=== PATIENT | male | born 1950 | race Caucasian/White ===

== ENCOUNTER 2022-05-29 12:42 | Outpatient (CLI) | payer MEDICARE, OTHER, SELFPAY | END 2022-05-29 12:43 | disposition home or self-care (01) | LOC: NFLDREF 05-31 05:07 | PROVIDERS: Visit Provider Nurse Practitioner Family | DX: R30.0 Dysuria (principal); N39.0 Urinary tract infection, site not specified | CPT/HCPCS: 87086 ==

== ENCOUNTER 2022-08-21 12:46 | Outpatient (REF) | payer MEDICARE, OTHER, SELFPAY | END 2022-08-21 12:47 | disposition home or self-care (01) | LOC: LAB 12:46 | PROVIDERS: Radiology Radiation Oncology | DX: C61 Malignant neoplasm of prostate (principal) | CPT/HCPCS: 36415; 84153 ==

== ENCOUNTER 2022-11-04 14:52 | Outpatient (CLI) | payer MEDICARE, OTHER, SELFPAY | END 2022-11-04 14:53 | disposition home or self-care (01) | LOC: LKVREF 14:54 | PROVIDERS: PCP Emergency Medicine; Visit Provider Emergency Medicine | DX: Z01.818 Encounter for other preprocedural examination (principal); I10 Essential (primary) hypertension | CPT/HCPCS: 80048 ==

== ENCOUNTER 2023-12-22 13:24 | Outpatient (CLI) | payer MEDICARE, OTHER, SELFPAY ==
--- OUTSIDE RECORDS SUMMARY | 2023-12-22 13:28 | XMS_ITS | Data Portability ---
Author Organization [facility], [facility] Address [address] [place] [address] Care Team Providers Care Utility Bagger Name Role Phone [facility] Primary Care Provid er CE VALLEJO Referring Provider Assessment No assessment recorded. Plan of Treatment Reminders Order Date Submit Date Provider Last Modified By Organization Details Last Modified Time Details Appointments ESTABLISH ED 30 2024 11:00A LISSETTE ZEPEDA Not available Not available Not available Lab PSA, total, serum or plasma 2023 024 [facility], [address], [address], 07/27/2023 18:27:24 PSA, total, serum or plasma 2023 024 [facility], [address], [address], 10/19/2023 18:22:25 Referral None recorded. Procedures None recorded. Surgeries None recorded. Imaging None recorded. Medication Orders sildenafi l 100 mg tablet 2023 024 [id number], [address] [place], [place], [id number], 11/02/2023 12:19:17 Patient TargetsNo targets recorded. Patient Instructions Encounter Date Encounter Id Patient Instructions Last Modified By Organization Details Last Modified Time 07/28/2023 [id number] history of prost ate cancer for which he underwent a robotic radical prostatectomy and bilateral pelvic lymphadenectomy on 11/10/22 for [place] 4 + 3 = 7/10 (ISUP grade group 3), with [place] pattern 4 representing approximately 60% of tumor with negative margins 11/30/22 E coli UTI completed 1 week course of Cipro, dysuria resolved PSA remains undetectable RTC in another 3 months for prostate cancer surveillance continue Kegel exercises and PFPT and biofeedback will reassess ISREAL at next f/u appt. also to continue Tadalafil 5 mg po daily and use 20 mg as needed for intercourse, add EDUIN for rehabilitation of of erections when ready jakornor Not available 07/28/2023 14:11:02 11/02/2023 [id number] history of prost ate cancer for which he underwent a robotic radical prostatectomy and bilateral pelvic lymphadenectomy on 11/10/22 for [place] 4 + 3 = 7/10 (ISUP grade group 3), with [place] pattern 4 representing approximately 60% of tumor with negative margins 11/30/22 E coli UTI completed 1 week course of Cipro, dysuria resolved PSA remains undetectable RTC in another 3 months for prostate cancer surveillance continue Kegel exercises and PFPT and biofeedback will reassess ISREAL at next f/u appt. also to continue Tadalafil 5 mg po daily and use 20 mg as needed for intercourse, add EDUIN for rehabilitation of of erections when ready vamanor Not available 11/02/2023 12:18:38 11/03/2023 [id number] history of prost ate cancer for which he underwent a robotic radical prostatectomy and bilateral pelvic lymphadenectomy on 11/10/22 for [place] 4 + 3 = 7/10 (ISUP grade group 3), with [place] pattern 4 representing approximately 60% of tumor with negative margins 11/30/22 E coli UTI completed 1 week course of Cipro, dysuria resolved PSA remains undetectable RTC in 6 months for prostate cancer surveillance continue Kegel exercises and PFPT and biofeedback also to continue ED management as per LISSETTE Merino jakornor Not available 11/03/2023 17:23:26 Reason for Referral None Reported. Results Created Date Observation Date Name Description Value Unit Range Abnormal Flag Note LastModifiedBy Organization Detail LastModifiedTime 07/23/19 24 07/23/2023 PSA, TOTAL PSA, total <0.10 NG/mL <4.0 This lab resul t is being provi ded to you and your provi meka at the same time in [facility] with the u ry Cures Act. Your provi meka may not have had time to revie w and make recom menda tions based on the resul t. Pleas e allow up to one week for provi meka revie w. Not Available [facility] [address], [place], [address], 07/27/2023 18:27:24 10/19/19 24 10/19/2023 PSA, TOTAL PSA, total <0.10 NG/mL <4.0 This lab resul t is being provi ded to you and your provi meka at the same time in [facility] with the Centu ry Cures Act. Your provi meka may not have had time to revie w and make recom menda tions based on the resul t. Pleas e allow up to one week for provi meka revie w. Not Available [facility] [address], [place], [address], 10/19/2023 18:22:25 Result Notes None recorded. Problems No Known Problems Procedures Surgical History Date Name Laterality Status Provider Name and Address Organization Details Recorded Time 11/03/19 24 Past Data Reviewed completed Diallo Mckeon MD [address] [place] [address],[address], [address], [facility] 10/27/2023 13:51:27 11/02/19 24 Past Data Reviewed completed LISSETTE MERINO [address] [place] [address],[address], [address], [facility] 11/02/2023 12:00:56 10/19/19 24 Blood Draw/MARKET SURVEY REPRESENTATIVE/PSA RESULTS completed Rayne Guevara [facility] 10/19/2023 10:26:06 07/28/19 24 Past Data Reviewed completed Diallo Mckeon MD [address] [place] [address],[facility] [address], [address], [facility] 07/28/2023 08:52:09 07/23/19 24 Blood Draw/MARKET SURVEY REPRESENTATIVE/PSA RESULTS completed Hellen Pratt [facility] 07/23/2023 12:54:54 02/24/19 24 Past Data Reviewed completed Diallo Mckeon MD [address] [place] [address],[address], [place], [address], [facility] 02/22/2023 19:01:50 02/13/20 23 Blood Draw/MARKET SURVEY REPRESENTATIVE/PSA RESULTS completed Wandy Guevara [facility] 02/12/2023 13:56:59 12/01/19 23 Past Data Reviewed completed Diallo Mckeon MD [address] [place] [address],[address], [place], [address], [facility] 11/30/2022 17:46:08 12/01/19 23 Fill and Pull/Voiding Trial/TOV completed Ria Hirsch [facility] 11/30/2022 10:56:23 09/26/19 23 Past Data Reviewed completed Diallo Mckeon MD [address] [place] [address],[address], [place], [address], [facility] 09/25/2022 10:11:06 07/04/19 23 Past Data Reviewed completed Diallo Mckeon MD [address] [place] [address],[address], [place], [address], [facility] 07/03/2022 11:55:49 03/25/19 23 Past Data Reviewed completed Diallo Mckeon MD [address] [place] [address],[address], [place], [address], [facility] 03/25/2022 15:46:28 01/23/20 21 Past Data Reviewed completed EVERETT RUFF [address] [place] [address],[address], [place], [address], [facility] 01/22/2021 10:41:21 11/28/19 21 Past Data Reviewed completed Diallo Mckeon MD [address] [place] [address],[address], [place], [address], [facility] 11/27/2020 10:50:15 09/28/19 19 Diagnostic colonoscopy completed Not Available Health Note 03/23/2022 20:27:21 replacement of aortic valve completed Not Available Health Note 03/23/2022 20:27:21 Removal of prostate completed Not Available Health Note 07/27/2023 14:04:29 Prostatectomy (turp) completed Not Available Health Note 07/27/2023 14:04:29 Imaging Results None recorded. Procedure Notes None recorded. Medical Equipment None Reported. Allergies No known drug allergies Medications Name Sig Start Date Stop Date Status Note LastModified by Organization Details LastModified Time amoxicill in 500 mg capsule 07/03 completed prior to dental work HN: Patient reports taking Not Available Not Available Not Available primidone 50 mg tablet TAKE ONE-HALF TABLET BY MOUTH EVERY DAY active Not Available Not Available No t Available propranol ol ER 160 mg capsule,2 4 hr,extend ed release 60mg 1-week/d ay 02/24 completed HN: Patient reports taking HN: Patient reports no longer taking HN: Patient reports no longer taking Not Available Not Available Not Available azithromy valerie 250 mg tablet 02/24 completed HN: Patient reports no longer taking Not Available Not Available Not Available fluconazo le 150 mg tablet TAKE 1 TABLET BY MOUTH EVERY 3 DAYS FOR 2 DOSES 11/30 completed Not Available Not Available Not Available phenazopy ridine 200 mg tablet TAKE 1 TABLET BY MOUTH THREE TIMES DAILY NEEDED 02/24 completed HN: Patient reports no longer taking Not Available Not Available Not Available prednison e 20 mg tablet TAKE 2 TABLETS BY MOUTH EVERY DAY FOR 5 DAYS 01/01 completed Not Available Not Available Not Available propranol ol ER 60 mg capsule,2 4 hr,extend ed release active Not Available Not Available Not Available ciproflox acin 500 mg tablet TAKE 1 TABLET BY MOUTH EVERY 12 HOURS FOR 7 DAYS 01/01 completed Not Available Not Available Not Available sulfameth oxazole 800 mg-trimet hoprim 160 mg tablet TAKE 1 TABLET BY MOUTH TWICE DAILY 02/24 completed HN: Patient reports no longer taking Not Available Not Available Not Available sildenafi l 100 mg tablet TAKE 1 TABLET BY MOUTH EVERY DAY active Not Available Not Available No t Available triamcino lone acetonide 0.1 % topical cream APPLY TOPICALL Y TO THE AFFECTED AREA TWICE DAILY active Not Available Not Available No t Available simvastat in 40 mg tablet 40mg 1/day 11/01 completed HN: Patient reports no longer taking Not Available Not Available Not Available carvedilo l 3.125 mg tablet 3.125mg 1/day active Not Available Not Available No t Available amoxicill in 875 mg tablet TAKE 1 TABLET BY MOUTH TWICE DAILY FOR 7 DAYS 02/24 completed HN: Patient reports no longer taking Not Available Not Available Not Available famotidin e 20 mg tablet 20mg 1/day active Not Available Not Available No t Available primidone 250 mg tablet 50mg 1/day 02/24 completed HN: Patient reports no longer taking HN: Patient reports no longer taking HN: Patient reports no longer taking Not Available Not Available Not Available tamsulosi n 0.4 mg capsule Take 2 capsules every day by oral route. active Not Available Not Available No t Available meclizine 25 mg tablet 02/24 completed HN: Patient reports no longer taking HN: Patient reports no longer taking HN: Patient reports no longer taking Not Available Not Available Not Available cephalexi n 500 mg capsule TAKE 1 CAPSULE BY MOUTH THREE TIMES DAILY FOR 7 DAYS 01/01 completed Not Available Not Available Not Available erythromy valerie 5 mg/gram (0.5 %) eye ointment active HN: Patient reports no longer taking Not Available Not Available Not Available tacrolimu s 0.1 % topical ointment active Not Available Not Available Not Available triamcino lone acetonide 0.1 % topical ointment APPLY TOPICALL Y TO THE AFFECTED AREA TWICE DAILY. DO NOT USE FOR MORE THAN 7 DAYS AT 1 TIME active Not Available Not Available No t Available losartan 25 mg tablet active Not Available Not Available Not Available oxybutyni n chloride ER 5 mg tablet,ex tended release 24 hr TAKE 3 TABLETS BY MOUTH EVERY DAY 2023 active Not Available Not Available Not Avai lable levofloxa valerie 500 mg tablet TAKE 1 TABLET BY MOUTH EVERY 24 HOURS. START 1 DAY BEFORE PROCEDUR E UNTIL ALL TAKEN 07/03 completed Not Available Not Available Not Available ketoconaz ole 2 % topical cream APPLY TOPICALL Y TO THE AFFECTED AREA EVERY DAY 02/24 completed HN: Patient reports no longer taking Not Available Not Available Not Available metformin ER 500 mg tablet,ex tended release 24 hr active HN: Patient reports no longer taking Not Available Not Available Not Available tadalafil 5 mg tablet active Not Available Not Available Not Available nitrofura ntoin monohydra te/macroc rystals 100 mg capsule TAKE 1 CAPSULE BY MOUTH TWICE DAILY WITH FOOD FOR 14 DAYS 07/03 completed Not Available Not Available Not Available aspirin Low dose 1/day active Not Available Not Available No t Available Vitals Date Recorded Body height Body mass index (BMI) Body weight Provider Name and Address Organization Details Last Updated DateTime 07/23/2023 185.42 cm 32.3 kg/m2 014916.13 g Hellen Pratt [facility] 07/23/2023 16:40:23 Date Recorded Body mass index (BMI) Body weight Body height Provider Name and Address Organization Details Last Updated DateTime 07/28/2023 32.3 kg/m2 190741.5377 12531 g 185.42 cm Not Available Health Note 07/28/2023 13:48:19 Date Recorded Body height Provider Name an d Address Organization Details Last Updated DateTime 10/19/2023 185.42 cm Rayne Guevara [facility] 10/19/2023 10:17:43 Date Recorded Body height Body mass index (BMI) Body weight Provider Name and Address Organization Details Last Updated DateTime 11/02/2023 185.42 cm 31.7 kg/m2 287306.17 g Jennifer Salmeron [facility] 11/02/2023 11:55:04 Social History Question Answer Notes LastModified by Organizat ion Details LastModified Time Tobacco Smoking Status Former Smoker Not Available Health Note 07/27/2023 14:04:30 What Is Your Level Of Alcohol Consumption? Occasional [email or web address] Information not available 07/27/2023 What Is Your Level Of Caffeine Consumption? Moderate [email or web address] Information not available 07/27/2023 How Much Tobacco Do You Chew? None [email or web address] Information not available 07/27/2023 Do You Or Have You Ever Used E-cigarettes Or Vape? Never Used Electronic Cigarettes [email or web address] Information not available 07/27/2023 When Did You Quit Smoking? 16+yearssinsourav ward [email or web address] Information not available 07/28/2023 Recreational Drug Use No [email or web address] Information not available 11/23/2020 What Was The Date Of Your Most Recent Tobacco Screening? 11/03/2023 Information not available 11/03/2023 What Is Your Relationship Status? Single [email or web address] Information not available 07/27/2023 Are You Sexually Active? No [email or web address] Information not available 07/27/2023 Do You Or Have You Ever Used Smokeless Tobacco? Never Used Smokeless Tobacco [email or web address] Information not available 07/27/2023 Do You Use Any Illicit Or Recreational Drugs? No [email or web address] Information not available 07/27/2023 Has Tobacco Cessation Counseling Been Provided? No Information not available 11/30/2022 On What Date Was Tobacco Cessation Counseling Provided? 11/03/2023 Information not available 11/03/2023 How Many Years Have You Smoked Tobacco? 20 [email or web address] Information not available 07/27/2023 Do You Or Have You Ever Used Any Other Forms Of Tobacco Or Nicotine? No Information not available 09/25/2022 How Many Days In The Past Year Have You Consumed 5 Or More Drinks? 3 [email or web address] Information no t available 07/27/2023 Sex: Male Functional Status None recorded. Mental Status None recorded. Family History Relationship Description Onset Age of this Age Resolved Age Notes LastModified by Organization Details LastModified Time Paternal Grandmother Family history of breast cancer [email or web address] Not available 2020 11:17:08 Paternal Grandmother Family history of malignant neoplasm [email or web address] Not available 2020 11:17:08 Mother Family history of malignant neoplasm [email or web address] Not available 2020 11:17:08 Father Family history of malignant neoplasm [email or web address] Not available 2020 11:17:08 Medical History Condition Response High Blood Pressure Y Kidney Stones N Depression N Sexually Transmitted Infection N Cancer Y Bleeding Disorder N Lung Disease N GERD/Acid Reflux Y High Cholesterol Y Diabetes N Heart Disease Y Immunizations Vaccine Type Date Status Provider Name and Address Organization Details Recorded Time SARS-COV-2 (COVID-19) vaccine, UNSPECIFIED 07/23/2020 completed Not Available Health Note 07/27/2023 14:04:34 SARS-COV-2 (COVID-19) vaccine, UNSPECIFIED 07/25/2019 completed Not Available [facility] 03/19/2023 13:11:33 SARS-COV-2 (COVID-19) vaccine, UNSPECIFIED 07/24/2020 completed Not Available [facility] 03/19/2023 13:11:33 SARS-COV-2 (COVID-19) vaccine, UNSPECIFIED 07/23/2020 completed Not Available [facility] 03/19/2023 13:11:33 COVID-19, mRNA, LNP-S, PF, 100 mcg/0.5mL dose or 50 mcg/0.25mL dose 06/24/2020 completed Not Available [facility] 03/19/2023 13:11:32 COVID-19, mRNA, LNP-S, PF, 100 mcg/0.5mL dose or 50 mcg/0.25mL dose 07/23/2020 completed Not Available [facility] 03/19/2023 13:11:33 pneumococcal polysaccharide PPV23 08/10/2018 completed Not Available [facility] 2023 13:11:33 Tdap 05/20/2011 completed Not Available [facility] 13:11:33 SARS-COV-2 (COVID-19) vaccine, UNSPECIFIED 07/24/2020 completed Not Available [facility] 03/19/2023 13:11:33 SARS-COV-2 (COVID-19) vaccine, UNSPECIFIED 07/24/2020 completed Not Available [facility] 03/19/2023 13:11:33 Pneumococcal conjugate PCV 13 09/07/2019 completed Not Available [facility] 03/19/2023 13:11:33 SARS-COV-2 (COVID-19) vaccine, UNSPECIFIED 08/13/2010 completed Not Available [facility] 03/19/2023 13:11:33 SARS-COV-2 (COVID-19) vaccine, UNSPECIFIED 07/24/2020 completed Not Available [facility] 03/19/2023 13:11:33 Past Encounters Encounter ID Performer Location Encounter Start Date Encounter Closed Date Diagnosis/Indication Diagnosis SNOMED-CT Code Diagnosis ICD10 Code [id number] MD Addison [facility],[address] [address] 11/27/2020 09:44:41 11/27/2020 11:41:43 Prostate specific antigen above reference range 626143048 R97.20 Benign pro static hyperplasia with outflow obstruction 965264670 N40.1 Dysuria 14064762 R30.9 Family his tory of malignant neoplasm of prostate 799835888 Z80.42 Acute urin soraya tract infection 716636064 N39.0 [id number] MD Addison [facility],[address] [address] 01/22/2021 10:31:32 01/22/2021 11:32:13 Prostate specific antigen above reference range 764881125 R97.20 Benign pro static hyperplasia with outflow obstruction 065206417 N40.1 Dysuria 28261720 R30.9 Family his tory of malignant neoplasm of prostate 188050908 Z80.42 History of urinary tract infection 5130396631 107 Z87.440 [id number] MD Addison [facility],[address] [address] 03/25/2022 14:49:41 03/25/2022 15:51:47 Prostate specific antigen above reference range 196382156 R97.20 Benign pro static hyperplasia with outflow obstruction 291293853 N40.1 Family his tory of malignant neoplasm of prostate 420189777 Z80.42 History of urinary tract infection 9053064551 107 Z87.440 [id number] MD Kenia [place] [address] [facility],[address] [place] [address] 07/03/2022 11:36:10 07/03/2022 12:19:28 Benign prostatic hyperplasia with outflow obstruction 609746568 N40.1 Malignant tumor of prostate 503887396 C61 Imaging of musculoskeletal system abnormal 810303645 R93.7 [id number] MD Kenia [place] [address] [facility] [address] [place] [address] 09/25/2022 11:04:41 09/25/2022 12:21:02 Benign prostatic hyperplasia with outflow obstruction 120871962 N40.1 Malignant tumor of prostate 744330234 C61 Imaging of musculoskeletal system abnormal 241592896 R93.7 [id number] Ria Hirsch [facility] [address] [facility] [place] [address] 11/30/2022 08:27:13 11/30/2022 16:10:43 Malignant tumor of prostate 096382353 C61 [id number] MD Nanette [place] [address] [address] 11/30/2022 17:02:28 12/04/2022 11:27:16 History of malignant neoplasm of prostate 966241030 Z85.46 Erectile d ysfunction following radical prostatectomy 8269168724 27284 N52.31 Painful ur ging to urinate 64367301 R30.0 [id number] MD Addison [place] [address] [address] 01/01/2023 10:42:34 01/01/2023 11:12:09 History of malignant neoplasm of prostate 242982484 Z85.46 Erectile d ysfunction following radical prostatectomy 8721500960 19101 N52.31 History of urinary tract infection 8285948215 107 Z87.440 Stress inc ontinence after prostatectomy 999924573 N39.3 [id number] Wandy Guevara [facility] [address] [address] [place] [address] 02/12/2023 13:45:48 02/17/2023 09:37:09 History of malignant neoplasm of prostate 720610992 Z85.46 [id number] Diallo Mckeon MD [facility] [place] [address] 02/24/2023 10:38:22 02/24/2023 12:07:03 History of malignant neoplasm of prostate 562767566 Z85.46 Erectile d ysfunction following radical prostatectomy 1133539330 95164 N52.31 History of urinary tract infection 4903824923 107 Z87.440 Stress inc ontinence after prostatectomy 985087518 N39.3 [id number] Hellen Pratt [facility] [address],[facility] [address] [place] [address] 07/23/2023 16:37:12 07/26/2023 08:21:19 History of malignant neoplasm of prostate 869767268 Z85.46 [id number] Diallo Mckeon MD [facility] [address],[facility] [address] [place] [address] 07/28/2023 13:48:10 07/28/2023 16:22:01 History of malignant neoplasm of prostate 173725086 Z85.46 Erectile d ysfunction following radical prostatectomy 2114627939 64263 N52.31 History of urinary tract infection 6650930288 107 Z87.440 Stress inc ontinence after prostatectomy 382339484 N39.3 [id number] Rayne Guevara [facility] [place] [address] [place] [address] 10/19/2023 10:13:53 10/19/2023 10:42:13 History of malignant neoplasm of prostate 781585909 Z85.46 [id number] Diallo Mckeon MD [facility] [place] [address] [place] [address] 11/03/2023 16:09:33 11/04/2023 10:56:19 History of malignant neoplasm of prostate 391866028 Z85.46 Erectile d ysfunction following radical prostatectomy 4883693573 76054 N52.31 History of urinary tract infection 3063045598 107 Z87.440 Stress inc ontinence after prostatectomy 204870337 N39.3 [id number] LISSETTE MERINO [facility] [place] [address] [place] [address] 11/02/2023 11:50:09 11/02/2023 12:23:55 History of malignant neoplasm of prostate 740149075 Z85.46 Erectile d ysfunction following radical prostatectomy 8231234908 53662 N52.31 History of urinary tract infection 4425250528 107 Z87.440 Stress inc ontinence after prostatectomy 075249272 N39.3 Health Concerns Section Related Observation LastModified by Organization Detai ls LastModified Time None Recorded Concern Status LastModified by Organization Details LastModified Time None Recorded Advance Directives Directive None Recorded Payers Encounter Date Sequence Insurance Name Policy Number Policy Starks Covered Member ID Starks Member ID Guarantor Name 07/23/2023 1 [place]ICARE [place]: [employer] [facility] Matthew Mary Throne [id number] Matthew Mary Throne 07/23/2023 2 WPS - FOR LIFE (MEDICARE SUPPLEMENT) Matthew Purine [id number] Matthew Hernandez Throne 07/28/2023 1 [place] [employer] [facility] Matthew Mary Throne [id number] Matthew Hernandez Throne 07/28/2023 2 WPS - FOR LIFE (MEDICARE SUPPLEMENT) Matthew Purine [id number] Matthew Hernandez Throne 10/19/2023 1 [place] [employer] [facility] Matthew Mary Throne [id number] Matthew Mary Throne 10/19/2023 2 WPS - FOR LIFE (MEDICARE SUPPLEMENT) Matthew Mary Throne [id number] Matthew Hernandez Throne 11/02/2023 1 [place] Powered [place] [facility] Matthew Mary Throne [id number] Matthew Mary Throne 11/02/2023 2 WPS - FOR LIFE (MEDICARE SUPPLEMENT) Matthew V Throne [id number] Matthew Mary Throne 11/03/2023 1 MEDICARE [facility]: Powered SERVICES [facility] Matthew Mary Throne [id number] Matthew Mary Throne 11/03/2023 2 WPS - FOR LIFE (MEDICARE SUPPLEMENT) Matthew Hernandez Throne [id number] Matthew Lackey Notes Date Note Type Note Provider Name and Address Organization Details Recorded Time 07/28/2023 text/html HPI Notes: Marshal has history of prostate cancer for which he underwent a robotic radical prostatectomy and bilateral pelvic lymphadenectomy on 11/10/22 for Nilesh 4 + 3 = 7/10 (ISUP grade group 3), with [place] pattern 4 representing approximately 60% of tumor with negative margins Took twice as long to perform due to poor urethral tissue quality that made anastomosis very challenging(+22 modifier). 11/30/22 Had TOV done at able to urinate but had symptoms of UTI-flank pain, urgency and pain. UCX confirmed Ecoli UTI Completed 1 week course of Cipro 500 mg po bid and UTI resolved His PSA is now undetectable. He is on quarterly follow-up with PSA. reported moderate ISREAL and was referred for PFPT and since noted improvement Also has ED on TADALAFIL 5 mg daily without improvement, EDUIN added but noted some improvement so wants to hold off on EDUIN back for f/u today no new complaints Continence Function Questionnaire: [3] Urinary control: Frequent dribbling [5] Leaked urine: Several times a day [4] How big of a problem urinary function has been: Moderate [4] Number of pads/adult diapers used: 3 or more pads per day Diallo Mckeon MD [address] [place] [address],[address], [place], [address], [facility] 07/28/2023 14:14:07 11/02/2023 text/html HPI Notes: Erect ile Dysfunction Reported by patient. Notes: EHS of 4 prior to surgery with no Medication Tadalafil 5mg with EHS of 0 Standard nerve sparing with good cosmetic effect on the right and left Marsahl has history of prostate cancer for which he underwent a robotic radical prostatectomy and bilateral pelvic lymphadenectomy on 11/10/22 for [place] 4 + 3 = 7/10 (ISUP grade group 3), with Nilesh pattern 4 representing approximately 60% of tumor with negative margins Took twice as long to perform due to poor urethral tissue quality that made anastomosis very challenging(+22 modifier). 11/30/22 Had TOV done at able to urinate but had symptoms of UTI-flank pain, urgency and pain. UCX confirmed Ecoli UTI Completed 1 week course of Cipro 500 mg po bid and UTI resolved His PSA is now undetectable. He is on quarterly follow-up with PSA. reported moderate ISREAL and was referred for PFPT and since noted improvement Also has ED on TADALAFIL 5 mg daily without improvement, EDUIN added but noted some improvement so wants to hold off on EDUIN Continence Function Questionnaire: [3] Urinary control: Frequent dribbling [5] Leaked urine: Several times a day [4] How big of a problem urinary function has been: Moderate [4] Number of pads/adult diapers used: 3 or more pads per day LISSETTE MERINO [address] [place] [address],[address], [address], [facility] 11/02/2023 12:19:49 11/03/2023 text/html HPI Notes: Prior to conducting our video visit, the patient was apprised of the risks, benefits and alternatives to video visits including but not limited to poor video quality, interrupted visits due to technological limitations, delays in medical evaluation and treatment due to deficiencies or failures of equipment, failure of security protocols resulting in a breach of privacy of personal medical information and a lack of access to complete medical records resulting in not fully informed decisions. It was not possible for the patient to sign the privacy regulations, HIPAA release and assignment of benefits forms. The patient was given the opportunity to ask questions about these policies and gave verbal acknowledgement and approval of these policies as well as to hold this meeting by video. Lastly, the patient agreed to allowing their medication history to be pulled from a national pharmacy database to facilitate and coordinate their care. Marshal has history of prostate cancer for which he underwent a robotic radical prostatectomy and bilateral pelvic lymphadenectomy on 11/10/22 for Nilesh 4 + 3 = 7/10 (ISUP grade group 3), with [place] pattern 4 representing approximately 60% of tumor with negative margins Took twice as long to perform due to poor urethral tissue quality that made anastomosis very challenging(+22 modifier). 11/30/22 Had TOV done at able to urinate but had symptoms of UTI-flank pain, urgency and pain. UCX confirmed Ecoli UTI Completed 1 week course of Cipro 500 mg po bid and UTI resolved His PSA remains undetectable. He is on quarterly follow-up with PSA. ISREAL improving with PFPT Also has ED on TADALAFIL 5 mg daily without improvement, saw LISSETTE Merino regarding ED and medication switched to Sildenafil. Yet to try it. no new complaints Diallo Mckeon MD [address] [facility],[address], [place], [address], [facility] 11/03/2023 17:24:00
--- OUTSIDE RECORDS SUMMARY | 2023-12-22 13:28 | XMS_ITS | Referral Summary ---
Author Organization [facility] Address [address] [place] [address] Care Team Providers Care Software Development Leader Name Role Phone Waldemar Valentin MD Unavailable [phone] Nicky Stephens Primary Care Provider [phone] Allergies Active Allergy Reactions Criticality Noted Date Comments Lisinopril Cough 08/18/2020 ACEI cause cough Medications Medication Sig Dispensed Refills Start Date End Date Status Amoxicillin 500 mg Oral Tab Take 4 Tabs by mouth as needed (Take 4 tabs 30-60 minutes prior to any dental work). 30-60 minutes prior to any dental work 4 Tab 1 05/11/2013 Active aspirin-acetaminophe n-caffeine (EXCEDRIN MIGRAINE) 250-250-65 mg oral tablet Take 1 tablet by mouth every 4 (four) hours as needed. Active aspirin 81 mg oral chewable tablet Chew 1 tablet (81 mg) once daily. 90 tablet 3 11/10/2018 Active ketoconazole 2% (NIZORAL) 2 % Top cream cream Apply to skin once daily. 60 g 1 09/13/2020 Active meclizine (ANTIVERT) 25 mg oral tabletIndications:Ve rtigo Take 1 tablet (25 mg) by mouth at bedtime as needed. 30 tablet 09/13/2020 Active propranolol HCl (PROPRANOLOL ORAL) Take 40 mg by mouth once daily. Active primidone (MYSOLINE) 50 mg oral tabletIndications:Tr emor TAKE 1/2 TABLET(25 MG) BY MOUTH EVERY DAY 45 tablet 3 11/24/2021 Active triamcinolone acetonide (KENALOG) 0.1% creamIndications:Dom matitis Apply to skin twice a day. 80 g 3 11/24/2021 Active simvastatin (ZOCOR) 40 mg oral tablet Take 1 tablet (40 mg) by mouth at bedtime. 90 tablet 3 03/12/2022 Active carvedilol (COREG) 3.125 mg oral tabletIndications:Pa roxysmal atrial fibrillation (HCC) TAKE 1 TABLET(3.125 MG) BY MOUTH TWICE DAILY WITH BREAKFAST AND DINNER 180 tablet 01/04/2023 Active metFORMIN ER (GLUCOPHAGE XR) 500 mg oral extended release tablet 24 HRIndications:Type 2 diabetes mellitus without complication, without long-term current use of insulin (HCC) TAKE 2 TABLETS(1000 MG) BY MOUTH EVERY DAY 180 tablet 03/17/2023 Active tamsulosin (FLOMAX) 0.4 mg oral capsule TAKE 1 CAPSULE(0.4 MG) BY MOUTH TWICE DAILY 180 capsule 04/29/2023 Active famotidine (PEPCID) 20 mg oral tablet Take 1 tablet (20 mg) by mouth once daily. (1 tablet = 20 mg) 90 tablet 05/19/2023 Active losartan (COZAAR) 25 mg oral tabletIndications:Es sential hypertension TAKE 1 TABLET(25 MG) BY MOUTH EVERY DAY 90 tablet 3 05/25/2023 Active Active Problems Problem Noted Date Diagnosed Date Type 2 diabetes mellitus wit hout complication, without long-term current use of insulin 04/20/2022 PAF (paroxysmal atrial fibrillation) 04/29/2021 Overview (04/29/2021): Declined DOAC Assessment & Plan (11/24/2021 11:58 AM CDT): Carvedilol 3.125 mg CHADSVAS core of 3 On Aspirin Tremor 11/10/2018 Assessment & Plan (11/24/2021 11:59 AM CDT): On propranolol 40 mg NUSRAT (obstructive sleep apnea) 06/04/2011 Overview (06/04/2011): Sleep study-09/25/09: Severe sleep disordered breathing. Aortic regurgitation 05/20/2011 Overview (06/04/2011): Echo-05/27/11: EF 65%. Mild concentric LVH. Moderately increased LV size with TINO 6.6cm, ESD 5.5cm. Severe AR with P1/2 247 msec. AV is trileaflet with prolapse of NC cusp with severe AI, no vegatation seen by TTE. Mild dilation of the aortic root - measures 3.65 cm. Mildly elevated pulmonary pressure estimated at 32.4 mmHg + RAP. Mild to moderate MR. Hyperlipidemia 05/20/2011 Overview (06/04/2011): Lipids-Date: 05/20/11 TC 221 TG 339 LDL 118 HDL 35 Itching 05/20/2011 Hypertension, isolated systolic 05/20/2011 Resolved Problems Problem Noted Date Diagnosed Date Resolved Date Heart murmur 05/20/2011 Immunizations Name Administration Dates Next Due Pneumococcal PCV13 09/07/2019 Pneumococcal PPSV23 08/10/2018 SPIKEVAX (Moderna) 12+ Yrs M onovalent COVID Vaccine (registered dietician) 07/23/2020,06/24/2020 Tdap 05/20/2011 UNSPECIFIED SARS-CoV-2 Vaccination 07/24/2020 Social History Tobacco Use Types Packs/Day Years Used Date Smoking Tobacco: Former Cigarettes Q uit: 05/13/1991 Smokeless Tobacco: Never Tobacco Cessation:Counseling Given: Not Answered Comments:quit smoking 1989 Alcohol Use Standard Drinks/Week Comments Yes 0 (1 standard drink = 0.6 oz pur e alcohol) occasional 1-2 not every night PHQ-2 Answer Date Recorded PHQ2 Total 0 04/20/2022 Sex and Gender Information Value Date Recorded Sex Assigned at Male 11/02/2021 9:34 AM CDT Gender Identity Male 11/02/2021 9:34 AM CDT Sexual Orientation Straight 11/02/2021 9: 34 AM CDT Last Filed Vital Signs Vital Sign Reading Time Taken Comments Blood Pressure 128/78 04/20/2022 12:57 PM BIODIESEL TECHNOLOGY MANAGER Pulse 91 04/20/2022 12:57 PM BIODIESEL TECHNOLOGY MANAGER Temperature 36.3 ??C (97.4 ??F) 04/20/2022 1 2:57 PM BIODIESEL TECHNOLOGY MANAGER Respiratory Rate 16 11/24/2021 11:2 5 AM CDT Oxygen Saturation 98% 11/24/2021 11: 25 AM CDT Inhaled Oxygen Concentration - - Weight 114.3 kg (251 lb 14.4 oz) 2022 12:57 PM BIODIESEL TECHNOLOGY MANAGER Height 185.4 cm (6' 1) 04/20/2022 12:5 7 PM BIODIESEL TECHNOLOGY MANAGER Body Mass Index 33.23 04/20/2022 12:57 PM BIODIESEL TECHNOLOGY MANAGER Plan of Treatment Not on file Medical Devices Implanted Type Area Management Liaison Device Identifier Shelf Expiration Date Model / Serial / Lot Valve Bhatia Aortic 25m 3000 - [id number] Implanted:Qty: 1 on 06/18/2011 at [facility] Valve N/A: Heart [employer] 10/16/2014 3000 / [id number] / Procedures Procedure Name Priority Date/Time Associated Diagnosis Comments BASIC METABOLIC PANEL 8 ([facility]) Routine 04/20/2022 1:35 PM BIODIESEL TECHNOLOGY MANAGER Hypertension, isolated systolic Type 2 diabetes mellitus without complication, without long-term current use of insulin (HCC) (yes) (HCC) HGB A1C ([facility]YCO HGB) OP Routine 11/24/2021 12:11 PM CDT Type 2 diabetes mellitus without complication, without long-term current use of insulin (HCC) (yes) (HCC) ALBUMIN/CREATININE RATIO, URINE ([facility]) Routine 04/29/2021 12:54 PM BIODIESEL TECHNOLOGY MANAGER Type 2 diabetes mellitus without complication, without long-term current use of insulin (HCC) (yes) (HCC) US ABDOMEN AORTA SCREENING Routine 09/07/2019 11:58 AM CDT Encounter for abdominal aortic aneurysm screening HEP C ANTIBODY Routine 09/07/2019 10:46 AM CDT Other problems related to lifestyle from Last 3 Months or Most Recently Relevant to Health Maintenance Results * (ABNORMAL) BASIC METABOLIC PANEL 8 ([facility]) (04/20/2022 1:35 PM BIODIESEL TECHNOLOGY MANAGER) Pathologist [facility] Glucose ([facility]) 169(H) 70 - 99 mg/dL 04/21/2022 4:08 PM BIODIESEL TECHNOLOGY MANAGER [facility] BUN ([facility]) 14 8 - 27 mg/dL 04/21/2022 4:08 PM BIODIESEL TECHNOLOGY MANAGER [facility] Creatinine ([facility]) 0.81 0.76 - 1.27 mg/dL 04/21/2022 4:08 PM BIODIESEL TECHNOLOGY MANAGER [facility] eGFR ([facility]) 95 >59 mL/min/1.7 3 04/21/2022 4:08 PM BIODIESEL TECHNOLOGY MANAGER [facility] BUN/Creatinine Ratio ([facility]) 17 10 - 24 04/21/2022 4:08 PM BIODIESEL TECHNOLOGY MANAGER [facility] Sodium ([facility]) 141 134 - 144 mmol/L 04/21/2022 4:08 PM BIODIESEL TECHNOLOGY MANAGER [facility] Potassium ([facility]) 4.5 3.5 - 5.2 mmol/L 04/21/2022 4:08 PM BIODIESEL TECHNOLOGY MANAGER [facility] Chloride ([facility]) 103 96 - 106 mmol/L 04/21/2022 4:08 PM BIODIESEL TECHNOLOGY MANAGER [facility] Carbon Dioxide ([facility]) 24 20 - 29 mmol/L 04/21/2022 4:08 PM BIODIESEL TECHNOLOGY MANAGER [facility] Calcium ([facility]) 8.9 8.6 - 10.2 mg/dL 04/21/2022 4:08 PM BIODIESEL TECHNOLOGY MANAGER [facility] Blood Venipuncture / Unknown 04/20/2022 1:35 PM BIODIESEL TECHNOLOGY MANAGER 04/20/2022 1:35 PM BIODIESEL TECHNOLOGY MANAGER [facility] - 04/21/2022 4:08 PM BIODIESEL TECHNOLOGY MANAGER Performed at: ??01 - [address] ??[id number] Heel Coverer Machine Operator: Jared Arrieta MD, Phone: ??[phone] Rebekah Azevedo DO [facility] ORDERABLES [facility] [address] [facility] [place] [address] * (ABNORMAL) HGB A1C (GLYCO HGB) OP (11/24/2021 12:11 PM CDT) HGBA1C OP 6.3(H) <=5.6 % 11/24/2021 12:31 PM CDT [facility] EST AVERAGE GLUCOSE OP 134(H) <=114 mg/dL 11/24/2021 12:31 PM CDT [facility] Blood Venipuncture / Unknown 11/24/2021 12:11 PM CDT 11/24/2021 12:11 PM CDT Nicky ARGUELLES CHEMISTRY ORDERABLE [facility] [address] [place] [address], * (ABNORMAL) ALBUMIN/CREATININE RATIO, URINE ([facility]) (04/29/2021 12:54 PM BIODIESEL TECHNOLOGY MANAGER) Creatinine Urine ([facility]) 91.7 Not Estab. mg/dL 04/30/2021 12:08 PM BIODIESEL TECHNOLOGY MANAGER [facility] Albumin Urine. ([facility]) 49.4 Not Estab. ug/mL 04/30/2021 12:08 PM BIODIESEL TECHNOLOGY MANAGER [facility] Albumin/Creatin ine Ratio ([facility]) 54(H) 0 - 29 mg/g creat 04/30/2021 12:08 PM BIODIESEL TECHNOLOGY MANAGER [facility] Comment: ? Normal: ?0 - ??29 ? Moderately increased: 30 - 300 ? Severely increased: ? >300 Urine specimen (specimen) 04/29/2021 12:54 PM BIODIESEL TECHNOLOGY MANAGER 04/29/2021 12:54 PM BIODIESEL TECHNOLOGY MANAGER Narrative [facility] - 04/30/2021 12:08 PM BIODIESEL TECHNOLOGY MANAGER Performed at: ??01 - [facility] [address] [place] [address] ??[id number] Heel Coverer Machine Operator: Jared Arrieta MD, Phone: ??[phone] Eusebia Martel MD [facility] ORDERABLES [facility] [address] [place] [address] * US ABDOMEN AORTA SCREENING (09/07/2019 11:58 AM CDT) Anatomical Region Laterality Modality ABD/Pelvis Ultrasound 09/07/2019 1:08 PM CDT Impressions 09/07/2019 1:08 PM CDT IMPRESSION: No abdominal aortic aneurysm. REPORT SIGNED BY DR. Saul George Narrative 09/07/2019 1:08 PM CDT EXAM: ULTRASOUND ABDOMINAL AORTA DATE: 09/07/2019 11:47 AM COMPARISON: No previous abdominal aortic ultrasound are submitted for comparison. CLINICAL DATA: Pulsatile abnormality. ADDITIONAL CLINICAL DATA: Z13.6 Encounter for screening for cardiovascular disorders TECHNIQUE: Painting-scale and color flow doppler imaging of the abdominal aorta as well as spectral analysis. FINDINGS: Abdominal Aorta: No abdominal aortic aneurysm. The diameter of the abdominal aorta is 2.6 cm proximally, 2.4 cm in the midportion, and 2.1 cm distally. Iliac Arteries: Patent. Diameters 1.4 cm on the right and 1.3 cm on the left. Inferior Vena Cava: Patent. Urinary Bladder: Decompressed. Kidneys: No hydronephrosis. Procedure Note Saul George MD - 09/07/2019 EXAM: ULTRASOUND ABDOMINAL AORTA DATE: 09/07/2019 11:47 AM COMPARISON: No previous abdominal aortic ultrasound are submitted forcomparison. CLINICAL DATA: Pulsatile abnormality. ADDITIONAL CLINICAL DATA: Z13.6 Encounter for screening for cardiovasculardisorders TECHNIQUE: Painting-scale and color flow doppler imaging of the abdominalaorta as well as spectral analysis. FINDINGS: Abdominal Aorta: No abdominal aortic aneurysm. The diameter of theabdominal aorta is 2.6 cm proximally, 2.4 cm in the midportion, and 2.1 cmdistally. Iliac Arteries: Patent. Diameters 1.4 cm on the right and 1.3 cm on theleft. Inferior Vena Cava: Patent. Urinary Bladder: Decompressed. Kidneys: No hydronephrosis. IMPRESSION IMPRESSION: No abdominal aortic aneurysm. REPORT SIGNED BY DR. Saul George Eusebia Martel MD ULTRASOUND ORDERABLE * HEP C ANTIBODY (09/07/2019 10:46 AM CDT) Hepatitis C Antibody Non-Reacti ve Non-Reacti ve 09/07/2019 11:44 PM CDT [facility] Blood specimen (specimen) Venipuncture / Unknown 09/07/2019 10:46 AM CDT 09/07/2019 10:46 AM CDT Eusebia Martel MD IMMUNOLOGY ORDERABLE [facility] [address] [place] [id number] from Last 3 Months or Most Recently Relevant to Health Maintenance Administered Medications Advance Directives For more information, please contact: [phone] Documents on File Type Date Recorded Patient Digital Composer Expl anation Health Care Directive 05/13/2011 1:08 PM Care Teams Software Development Leader Relationship Specialty Start Date End Date Waldemar Valentin MD PCP - Care Manager [facility] Cardiology 06/15/11 Nicky Stephens MBBS [address] [place] [address] PCP - General Internal Medicine 11/24/21
--- OUTSIDE RECORDS SUMMARY | 2023-12-22 13:28 | XMS_ITS | Clinical Summary ---
Author Organization [facility] Address [address] [place] [address] Care Team Providers Care Argon Tester Name Role Phone Waldemar Valentin MD Unavailable [phone] Nicky Stephens Primary Care Provider [phone] Allergies Active Allergy Reactions Criticality Noted Date [...] 12+ Yrs M onovalent COVID Vaccine (registered mail clerk) 07/23/2020,06/24/2020 Tdap 05/20/2011 UNSPECIFIED SARS-CoV-2 Vaccination 07/24/2020 Family History Medical History Relation Comments Lung Cancer Father age 73 Brain/JEWELRY MAKER Cancer Mother High Blood Pressure Mother Lung Cancer Mother Relation Status Comments Father Mother Social History Tobacco Use Types Packs/Day Years [...] Comments Blood Pressure 128/78 04/20/2022 12:57 PM HEARING AID REPAIRER Pulse 91 04/20/2022 12:57 PM HEARING AID REPAIRER Temperature 36.3 ??C (97.4 ??F) 04/20/2022 1 2:57 PM HEARING AID REPAIRER Respiratory Rate 16 11/24/2021 11:2 5 AM CDT Oxygen Saturation 98% 11/24/2021 11: 25 AM CDT Inhaled Oxygen Concentration - - Weight 114.3 kg (251 lb 14.4 oz) 2022 12:57 PM HEARING AID REPAIRER Height 185.4 cm (6' 1) 04/20/2022 12:5 7 PM HEARING AID REPAIRER Body Mass Index 33.23 04/20/2022 12:57 PM HEARING AID REPAIRER Plan of Treatment Health Maintenance Due Date Last Done Comments Eye Exam 1950 Depression Assessment (PHQ-2) 12/29/1951 Zoster Vaccine (1 of 2) 12/29/2001 Adult Tetanus Booster 05/19/2021 05/20/2011 Microalbumin Q12 Month 04/29/2022 04/29/2021 HgbA1C 05/25/2022 11/24/2021, 03/0 09/2021, 01/10/2021, Additional history exists Medicare Wellness Visit 11/24/2022 11/25/19, 11/24/2021, 09/13/2020, Additional history exists Yearly Review of HCD 04/20/2023 04/20/2022, 11/24/2021, 02/03/2021, Additional history exists Colonoscopy 09/28/2023 09/27/2018, 09/22/2018 COVID-19 Vaccine (4 - 2023-2 5 season) 2023 07/24/2020, 07/23/2020, 06/24/2020, Additional history exists Influenza Vaccine (#1) 2023 Creatinine 11/13/2023 11/12/2022, 10/24, 04/20/2022, Additional history exists RSV Vaccines (1 - 1-dose 75+ series) 12/29/2026 AAA Ultrasound Screening Completed 09/07/2019 Hepatitis C Screening Completed 09/07/2019 Pneumococcal 65+ Completed 09/07/2019, , 08/10/2018 Medical Devices Implanted Type Area Print Line Operator Device Identifier Shelf Expiration Date Model / Serial / Lot Valve Bhatia Aortic 25m 3000 - [id number] Implanted:Qty: 1 on 06/18/2011 at [facility] Valve N/A: Heart [employer] 10/16/2014 3000 / [id number] / Procedures Procedure Name Priority Date/Time Associated Diagnosis Comments BASIC METABOLIC PANEL 8 ([facility]) Routine 04/20/2022 1:35 PM HEARING AID REPAIRER Hypertension, isolated systolic Type 2 diabetes mellitus without complication, without long-term current use of insulin (HCC) (yes) (HCC) HGB A1C (GLYCO HGB) OP Routine 11/24/2021 12:11 PM CDT Type 2 diabetes mellitus without complication, without long-term current use of insulin (HCC) (yes) (HCC) ALBUMIN/CREATININE RATIO, URINE ([facility]) Routine 04/29/2021 12:54 PM HEARING AID REPAIRER Type 2 diabetes mellitus without complication, without [...] METABOLIC PANEL 8 ([facility]) (04/20/2022 1:35 PM HEARING AID REPAIRER) Pathologist [facility] Glucose ([facility]) 169(H) 70 - 99 mg/dL 04/21/2022 4:08 PM HEARING AID REPAIRER [facility] BUN ([facility]) 14 8 - 27 mg/dL 04/21/2022 4:08 PM HEARING AID REPAIRER [facility] Creatinine ([facility]) 0.81 0.76 - 1.27 mg/dL 04/21/2022 4:08 PM HEARING AID REPAIRER [facility] eGFR ([facility]) 95 >59 mL/min/1.7 3 04/21/2022 4:08 PM HEARING AID REPAIRER [facility] BUN/Creatinine Ratio ([facility]) 17 10 - 24 04/21/2022 4:08 PM HEARING AID REPAIRER [facility] Sodium ([facility]) 141 134 - 144 mmol/L 04/21/2022 4:08 PM HEARING AID REPAIRER [facility] Potassium ([facility]) 4.5 3.5 - 5.2 mmol/L 04/21/2022 4:08 PM HEARING AID REPAIRER [facility] Chloride ([facility]) 103 96 - 106 mmol/L 04/21/2022 4:08 PM HEARING AID REPAIRER [facility] Carbon Dioxide ([facility]) 24 20 - 29 mmol/L 04/21/2022 4:08 PM HEARING AID REPAIRER [facility] Calcium ([facility]) 8.9 8.6 - 10.2 mg/dL 04/21/2022 4:08 PM HEARING AID REPAIRER [facility] Blood Venipuncture / Unknown 04/20/2022 1:35 PM HEARING AID REPAIRER 04/20/2022 1:35 PM HEARING AID REPAIRER Narrative [facility] - 04/21/2022 4:08 PM HEARING AID REPAIRER Performed at: ??01 - [facility] [address] ??[id number] Center Punch Operator: Jared Arrieta MD, Phone: ??[phone] Rebekah Azevedo DO [facility] ORDERABLES [facility] [address] [place] [address] * (ABNORMAL) HGB A1C (GLYCO HGB) OP (11/24/2021 12:11 PM CDT) HGBA1C OP 6.3(H) <=5.6 % 11/24/2021 12:31 PM CDT [facility] EST AVERAGE GLUCOSE OP 134(H) <=114 mg/dL 11/24/2021 12:31 PM CDT [facility] Blood Venipuncture / Unknown 11/24/2021 12:11 PM CDT 11/24/2021 12:11 PM CDT Nicky ARGUELLES CHEMISTRY ORDERABLE [facility] [address] [facility] [address] [place] [address], * (ABNORMAL) ALBUMIN/CREATININE RATIO, URINE ([facility]) (04/29/2021 12:54 PM HEARING AID REPAIRER) Creatinine Urine ([facility]) 91.7 Not Estab. mg/dL 04/30/2021 12:08 PM HEARING AID REPAIRER [facility] Albumin Urine. ([facility]) 49.4 Not Estab. ug/mL 04/30/2021 12:08 PM HEARING AID REPAIRER [facility] Albumin/Creatin ine Ratio ([facility]) 54(H) 0 - 29 mg/g creat 04/30/2021 12:08 PM HEARING AID REPAIRER [facility] Comment: ? Normal: ?0 - ??29 ? Moderately increased: 30 - 300 ? Severely increased: ? >300 Urine specimen (specimen) 04/29/2021 12:54 PM HEARING AID REPAIRER 04/29/2021 12:54 PM HEARING AID REPAIRER Narrative [facility] - 04/30/2021 12:08 PM HEARING AID REPAIRER Performed at: ??01 - [facility] ??[id number] Center Punch Operator: Jared Arrieta MD, Phone: ??[phone] Eusebia Martel MD [facility] ORDERABLES [facility] [address] [place] [id number] * US ABDOMEN AORTA SCREENING (09/07/2019 11:58 [...] ve Non-Reacti ve 09/07/2019 11:44 PM CDT [facility] Blood specimen (specimen) Venipuncture / Unknown 09/07/2019 10:46 AM CDT 09/07/2019 10:46 AM CDT Eusebia Martel MD IMMUNOLOGY ORDERABLE [facility] [address] [id number] from Last 3 Months or Most Recently Relevant to Health Maintenance Advance Directives For more information, please contact: [phone] Documents on File Type Date Recorded Patient Cut Off Sawyer Log Expl anation Health Care Directive 05/13/2011 1:08 PM Care Teams Argon Tester Relationship Specialty Start Date End Date Waldemar Valentin MD PCP - Assistant Track And Field Coach Cardiology 06/15/11 Nicky Stephens MBBS [address] [place] [address] PCP - General Internal Medicine 11/24/21
--- OUTSIDE RECORDS SUMMARY | 2023-12-22 13:29 | XMS_ITS | Clinical Summary ---
Author Organization [facility] Address [place], [place] [address] Care Team Providers Care Application Security Architect Name Role Phone [facility] - Primary Care Provider Allergies Active Allergy Reactions Criticality Noted Date Comments Lisinopril Cough 08/18/2020 ACEI cause cough ACEI cause cough Medications Medication Sig Dispensed Refills Start Date End Date Status amoxicillin (AMOXIL) 500 mg capsule Take 4 Capsules by mouth. Take 4 capsules by mouth 30-60 mins prior to any dental work Active aspirin-acetaminoph en-caffeine (EXCEDRIN EX STR) 250-250-65 mg Take 1 Tablet by mouth every 6 hours if needed. Active aspirin (ECOTRIN) 81 mg enteric coated tablet Take 81 mg by mouth once daily if needed. 08/21/2020 Active ketoconazole 2% topical (NIZORAL) cream Apply topically to affected area(s). 09/13/2020 Active metFORMIN (GLUCOPHAGE XR) 500 mg Extended-Release tablet 500 mg two times daily with meals. 04/29/2021 Active losartan (COZAAR) 25 mg tablet Take 25 mg by mouth once daily. 02/03/2021 Active carvediloL (COREG) 3.125 mg tablet 3.125 mg two times daily with meals. 10/10/2021 Active primidone (MYSOLINE) 50 mg tablet Take 25 mg by mouth once daily. 06/30/2021 Active triamcinolone (ARISTOCORT; KENALOG) 0.1 % cream triamcinolone acetonide 0.1 % topical cream APPLY TOPICALLY TO THE AFFECTED AREA TWICE DAILY 11/24/2021 Active simvastatin (ZOCOR) 40 mg tablet Take 40 mg by mouth once daily with evening meal. 03/12/2022 Active propranolol ER (INDERAL LA) 60 mg Cs24 Sustained-Release capsule Take 60 mg by mouth once weekly. 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-insulin dependent type 2 diabetes mellitus 0 11/10/2022 Hyperlipidemia 11/10/2022 NUSRAT (obstructive sleep apnea) 11/10/2022 S/P AVR (aortic valve replacement) 11/10/2022 Paroxysmal atrial fibrillation 11/10/2022 Social History Tobacco Use Types Packs/Day Years Used Date Smoking Tobacco: Former Cigarettes Q uit: 1989 Smokeless Tobacco: Never Tobacco Cessation:Counseling Given: Not Answered Alcohol Use Standard Drinks/Week Comments Yes 0 (1 standard drink = 0.6 oz pur e alcohol) 3 drinks/week Social Connections Answer Date Recorded Frequency of Communication with Friends and Fami ly Not on file 11/13/2022 Sex and Gender Information Value Date Recorded Sex Assigned at Not on file Gender Identity Not on file Sexual Orientation Not on file Obstetrics History Last Filed Vital Signs Vital Sign Reading Time Taken Comments Blood Pressure 142/83 11/13/2022 7:49 AM CDT Pulse 82 11/13/2022 7:49 AM CDT Temperature 36.7 ??C (98.1 ??F) 11/13/2022 7:49 AM CD T Respiratory Rate 18 11/13/2022 7:49 AM CDT Oxygen Saturation 94% 11/13/2022 7:49 AM CDT Inhaled Oxygen Concentration - - Weight 111.8 kg (246 lb 6.4 oz) 11/13/2022 1:35 AM CDT Height 185.4 cm (6' 1) 11/10/2022 9:47 AM CDT Body Mass Index 32.51 11/10/2022 9:47 AM CDT Plan of Treatment Health Maintenance Due Date Last Done Comments Pneumococcal series for age 65+ (1 of 2 - PCV) 12/29/1957 Tdap 12/29/1962 Depression screening for age 12+ 1963 BMI (ht and wt on same day) for age 18+ 12/29/1969 Hepatitis C screening for age 18-79 12/29/1969 Tetanus booster 1971 Colonoscopy through age 75 12/29/1996 Lipids for age 45-75 12/29/1996 Zoster (shingles) series for age 50+ (1 of 2) 12/29/2001 AAA screening age 65-74 12/29/2016 COVID-19 vaccine series (3 season) 2023 07/23/2020, 06/24/2020 Influenza for age 65+ 10/24/2023 Advance Directives * Full Code (Latest Code Status on File) Date Activated Date Inactivated Comments 11/10/2022 9:15 AM 11/13/2022 7:14 PM Question Answer Comments Code Status Discussion: Reviewed Preferences * Full Code Date Activated Date Inactivated Comments 04/24/2022 12:10 PM 04/24/2022 5:44 PM Question Answer Comments Code Status Discussion: Reviewed Preferences Care Teams Application Security Architect Relationship Specialty Start Date End Date [facility] - [address] [address] [address] [place] [id number] PCP - General Family Practice 04/06/22
--- OUTSIDE RECORDS SUMMARY | 2023-12-22 13:29 | XMS_ITS | Referral Summary ---
Author Organization [facility] Address [address] [place] [address] Care Team Providers Care Shot Peen Operator Name Role Phone Clinic, [facility] Primary Care P rovider Allergies Active Allergy Reactions Criticality Noted Date Comments Lisinopril Cough 08/18/2020 ACEI cause cough Medications tamsulosin (FLOMAX) 0.4 MG capsule Take 0.4 mg by mouth At Bedtime Active carvedilol (COREG) 3.125 MG tablet Take 3.125 mg by mouth 2 times daily (with meals) Active simvastatin (ZOCOR) 40 MG tablet Take 40 mg by mouth At Bedtime Active propranolol (INDERAL) 40 MG tablet Take 40 mg by mouth At Bedtime Active primidone (MYSOLINE) 50 MG tablet Take 25 mg by mouth daily Active metFORMIN (GLUCOPHAGE-XR) 500 MG 24 hr tablet Take 500 mg by mouth daily before breakfast Active famotidine (PEPCID) 20 MG tabletIndication s:Gastroesophage al reflux disease without esophagitis Take 1 tablet (20 mg) by mouth 2 times daily 60 tablet 1 Active aspirin (ASA) 81 MG EC tabletIndication s:Elevated troponin Take 1 tablet (81 mg) by mouth daily 100 tablet 1 1 Active Active Problems Problem Noted Date Diagnosed Date Dizziness 08/18/2020 Essential hypertension 08/18/2020 Elevated troponin 08/18/2020 Social History Tobacco Use Types Packs/Day Years Used Date Smoking Tobacco: Never Assessed Adolescent Education Answer Date Record ed Getting School Help Needed Not on file 11/14 Sex and Gender Information Value Date Recorded Sex Assigned at Not on file Legal Sex Male 11:04 AM CDT Gender Identity Not on file Sexual Orientation Not on file Last Filed Vital Signs Vital Sign Reading Time Taken Comments Blood Pressure 155/93 08/20/2020 11:16 AM CDT Pulse 63 08/20/2020 11:16 AM CDT Temperature 37 ??C (98.6 ??F) 08/20/2020 11: 16 AM CDT Respiratory Rate 18 08/20/2020 11:1 6 AM CDT Oxygen Saturation 96% 08/20/2020 11: 16 AM CDT Inhaled Oxygen Concentration - - Weight 113.1 kg (249 lb 4.8 oz) 08/18/2020 5:50 PM CDT Height 185.4 cm (6' 1) 08/18/2020 5:50 PM CDT Body Mass Index 32.89 08/18/2020 5:50 PM CDT Plan of Treatment Not on file Insurance MEDICARE / Advance Directives For more information, please contact: [phone] * Full Code (Latest Code Status on File) Date Activated Date Inactivated Comments 08/20/2020 10:59 AM Question Answer Comments Code status determined by: Discussion with patie nt/ legal decision maker * Full Code Date Activated Date Inactivated Comments 08/18/2020 6:04 PM 08/20/2020 10:59 AM All basic a nd advanced life-sustaining interventions are performed as appropriate Question Answer Comments Code status determined by: Discussion with catherine nt/ legal decision maker Care Teams Shot Peen Operator Relationship Specialty Start Date End Date [facility] [address] [place] [address] PCP - General 08/18/20
--- OUTSIDE RECORDS SUMMARY | 2023-12-22 13:29 | XMS_ITS | Continuity of Care Document ---
Author Organization [facility], [employer] New Address [address] [place] [address] Care Team Providers Care Electrotype Finisher Name Role Phone [facility] Primary Care Provid er CE VALLEJO Referring Provider Assessment No assessment recorded. Plan of Treatment Reminders Order Date Submit Date Provider Last Modified By Organization Details Last Modified Time Details Appointments ESTABLISH ED 30 2024 11:00A M LISSETTE ESTEVEZ Not available Not available Not available Lab None recorded. Referral None recorded. Procedures None recorded. Surgeries None recorded. Imaging None recorded. Medication Orders None recorded. Patient TargetsNo targets recorded. Patient Instructions Encounter Date Encounter Id Patient Instructions Last Modified By Organization Details Last Modified Time 11/03/2023 [id number] history of prost ate cancer for which [...] to continue ED management as per LISSETTE Estevez Not available 11/03/2023 17:23:26 Reason for Referral None Reported. Problems No Known Problems Procedures Surgical History Date Name Laterality Status Provider Name and Address Organization Details Recorded Time 11/03/19 24 Past Data Reviewed completed Diallo Mckeon MD [address], [place], [address], [facility] 10/27/2023 13:51:27 11/02/19 24 Past Data Reviewed completed LISSETTE ESTEVEZ [address], [place], [address], [facility] 11/02/2023 12:00:56 10/19/19 24 Blood Draw/RN ORTHOPAEDIC/PSA RESULTS completed Rayne Guevara [facility] 10/19/2023 10:26:06 07/28/19 24 Past Data Reviewed completed Diallo Mckeon MD [address] [place] [address],[address], [place], [address], [facility] 07/28/2023 08:52:09 07/23/19 24 Blood Draw/RN ORTHOPAEDIC/PSA RESULTS completed Hellen Pratt [facility] 07/23/2023 12:54:54 02/24/19 24 Past Data Reviewed completed Diallo Mckeon MD [address] [place] [address],[address], [place], [address], [facility] 02/22/2023 19:01:50 02/13/20 23 Blood Draw/RN ORTHOPAEDIC/PSA RESULTS completed Wandy Guevara [facility] 02/12/2023 13:56:59 12/01/19 23 Past Data Reviewed completed Diallo Mckeon MD [address] [place] [address],[address], [place], [address], [facility] 11/30/2022 17:46:08 12/01/19 23 Fill and Pull/Voiding Trial/TOV completed Ria Hirsch [facility] 11/30/2022 10:56:23 09/26/19 23 Past Data Reviewed completed Diallo Mckeon MD [address] [place] [address],[address], [place], [address], [facility] 09/25/2022 10:11:06 07/04/19 23 Past Data Reviewed completed Diallo Mckeon MD [address] [place] [address],[address], [place], [address], [facility] 07/03/2022 11:55:49 03/25/19 23 Past Data Reviewed completed Diallo Mckeon MD [address] [place] [address],[facility], [place], [phone] [place] [address] Urology 03/25/2022 15:46:28 01/23/20 21 Past Data Reviewed completed EVERETT RUFF [address] [facility] [address],[facility] [address], [place], [address] [place] [address] Urology 01/22/2021 10:41:21 11/28/19 21 Past Data Reviewed completed Diallo Mckeon MD [address] [facility] [address] [address], [place], [address], [facility] 11/27/2020 10:50:15 09/28/19 19 Diagnostic colonoscopy completed [...] Available Not Available No t Available Vitals None Recorded Social History Question Answer Notes LastModified by [...] When Did You Quit Smoking? 17+[facility]ins[facility] [email or web address] Information not available 07/28/2023 Recreational Drug Use [...] Pressure Y Kidney Stones N Depression N Lung Disease N GERD/Acid Reflux Y Sexually Transmitted Infection N Cancer Y High Cholesterol Y Diabetes N Bleeding Disorder N Heart Disease Y Immunizations Vaccine Type Date Status Provider Name and Address Organization Details Recorded Time SARS-COV-2 (COVID-19) vaccine, UNSPECIFIED 07/23/2020 completed Not Available [facility] 07/27/2023 14:04:34 SARS-COV-2 (COVID-19) vaccine, UNSPECIFIED 07/25/2019 completed Not Available [facility] 03/19/2023 13:11:33 SARS-COV-2 (COVID-19) vaccine, UNSPECIFIED 07/24/2020 completed Not Available [facility] 03/19/2023 13:11:33 SARS-COV-2 (COVID-19) vaccine, UNSPECIFIED 07/23/2020 completed Not Available [facility] 03/19/2023 13:11:33 COVID-19, mRNA, LNP-S, PF, 100 mcg/0.5mL dose or 50 mcg/0.25mL dose 06/24/2020 completed Not Available [facility] 03/19/2023 13:11:32 COVID-19, mRNA, LNP-S, PF, 100 mcg/0.5mL dose or 50 mcg/0.25mL dose 07/23/2020 completed Not Available [facility] 03/19/2023 13:11:33 pneumococcal polysaccharide PPV23 08/10/2018 completed Not Available [facility] 2023 13:11:33 Tdap 05/20/2011 completed Not Available [facility] 13:11:33 SARS-COV-2 (COVID-19) vaccine, UNSPECIFIED 07/24/2020 completed Not Available [facility] 03/19/2023 13:11:33 SARS-COV-2 (COVID-19) vaccine, UNSPECIFIED 07/24/2020 completed Not Available [facility] 03/19/2023 13:11:33 Pneumococcal conjugate PCV 13 09/07/2019 completed Not Available [facility] 03/19/2023 13:11:33 SARS-COV-2 (COVID-19) vaccine, UNSPECIFIED 08/13/2010 completed Not Available [facility] 03/19/2023 13:11:33 SARS-COV-2 (COVID-19) vaccine, UNSPECIFIED 07/24/2020 completed Not Available [facility] 03/19/2023 13:11:33 Past Encounters Encounter ID Performer Location Encounter Start Date Encounter Closed Date Diagnosis/Indication Diagnosis SNOMED-CT Code Diagnosis ICD10 Code [id number] Rayne Jaime_Deanno n [place] [facility] [address] [place] [address] [place] [address] 10/19/2023 10:13:53 10/19/2023 10:42:13 History of malignant neoplasm of prostate 248216404 Z85.46 [id number] MD Addison Cheatham_Coo n [place] [facility] [address] [place] [id number] 11/03/2023 16:09:33 11/04/2023 10:56:19 History of malignant neoplasm of prostate 560407587 Z85.46 Erectile d ysfunction following radical prostatectomy 8814141982 50036 N52.31 History of urinary tract infection 2708769933 107 Z87.440 Stress inc ontinence after prostatectomy 930138080 N39.3 [id number] LISSETTE ESTEVEZKailasho n [place] [facility] [address] [place] [id number] 11/02/2023 11:50:09 11/02/2023 12:23:55 History of malignant neoplasm of prostate 760031177 Z85.46 Erectile d ysfunction following radical prostatectomy 9059257481 23231 N52.31 History of urinary tract infection 3205510989 107 Z87.440 Stress inc ontinence after prostatectomy 903217832 N39.3 Health Concerns Section Related Observation LastModified by Organization Detai ls LastModified Time None Recorded Concern Status LastModified by Organization Details LastModified Time None Recorded Payers Encounter Date Sequence Insurance Name Policy Number Policy Starks Covered Member ID Starks Member ID Guarantor Name 11/03/2023 1 [place] [employer] Matthew Lackey [id number] Matthew aLckey 11/03/2023 2 [employer] - FOR LIFE (MEDICARE SUPPLEMENT) Matthew Lackey [id number] Matthew Lackey Notes Date Note Type Note Provider Name and Address Organization Details Recorded Time 11/03/2023 text/html HPI Notes: Prior to conducting [...] = 7/10 (ISUP grade group 3), with Pattison pattern 4 representing approximately 60% of tumor [...] 5 mg daily without improvement, saw LISSETTE Estevez regarding ED and medication switched to Sildenafil. Yet to try it. no new complaints Diallo Mckeon MD [address] [facility] [address], [place], [address], [facility] 11/03/2023 17:24:00
--- OUTSIDE RECORDS SUMMARY | 2023-12-22 13:29 | XMS_ITS | Clinical Summary ---
Author Organization [facility] Address [address] [place] [address] Care Team Providers Care Arm Rest Builder Name Role Phone Clinic, [facility] Primary Care P rovider Allergies Active Allergy [...] Advance Directives For more information, please contact: [phone] * Full Code (Latest Code Status on [...] catherine nt/ legal decision maker Care Teams Arm Rest Builder Relationship Specialty Start Date End Date [facility] [address] [place] [address] PCP - General 08/18/20
--- OUTSIDE RECORDS SUMMARY | 2023-12-22 13:29 | XMS_ITS | Continuity of Care Document ---
Author Organization [place] [facility] [place] [facility] New Address [address] [place] [address] Care Team Providers Care Senior Principal Architect Name Role Phone [facility] Primary Care Provid er CE VALLEJO Referring Provider [phone] Assessment No assessment recorded. Plan of Treatment Reminders Order Date Submit Date Provider Last Modified By Organization Details Last Modified Time Details Appointments ESTABLISH ED 30 2024 11:00A LISSETTE ZEPEDA Not available Not available Not available Lab None recorded. Referral None recorded. Procedures None recorded. Surgeries None recorded. Imaging None recorded. Medication Orders sildenafi l 100 mg tablet 2023 024 [id number], [address] [facility], [place], [place], [id number], 11/02/2023 12:19:17 Patient TargetsNo targets recorded. Patient Instructions Encounter Date Encounter Id Patient Instructions Last Modified By Organization Details Last Modified Time 11/02/2023 [id number] history of prost ate cancer for which he underwent a robotic radical prostatectomy and bilateral pelvic lymphadenectomy on 11/10/22 for Page 4 + 3 = 7/10 (ISUP grade group 3), with Page pattern 4 representing approximately 60% of tumor [...] when ready vamanor Not available 11/02/2023 12:18:38 Reason for Referral None Reported. Problems No Known Problems Procedures Surgical History Date Name Laterality Status Provider Name and Address Organization Details Recorded Time 11/03/19 24 Past Data Reviewed completed Diallo Mckeon MD [address] [place] [address],[address], [place], [address], [facility] 10/27/2023 13:51:27 11/02/19 24 Past Data Reviewed completed LISSETTE MERINO [address] [place] [address],[address], [place], [address], [facility] 11/02/2023 12:00:56 10/19/19 24 Blood Draw/AGRICULTURE LABORATORY TECHNICIAN/PSA RESULTS completed Rayne Guevara [facility] 10/19/2023 10:26:06 07/28/19 24 Past Data Reviewed completed Diallo Mckeon MD [address] [place] [address],[address], [place], [address], [facility] 07/28/2023 08:52:09 07/23/19 24 Blood Draw/AGRICULTURE LABORATORY TECHNICIAN/PSA RESULTS completed [facility] 07/23/2023 12:54:54 02/24/19 24 Past Data Reviewed completed Diallo Mckeon MD [address] [place] [address],[address], [place], [address], [facility] 02/22/2023 19:01:50 02/13/20 23 Blood Draw/AGRICULTURE LABORATORY TECHNICIAN/PSA RESULTS completed Wandy Guevara [facility] 02/12/2023 13:56:59 12/01/19 23 Past Data Reviewed completed Diallo Mckeon MD [address] [place] [address],[address], [place], [address], [facility] 11/30/2022 17:46:08 12/01/19 23 Fill and Pull/Voiding Trial/TOV completed Ria Hirsch [facility] 11/30/2022 10:56:23 09/26/19 23 Past Data Reviewed completed Diallo Mckeon MD [address] [place] [address],[address], [place], [address], [facility] 09/25/2022 10:11:06 07/04/19 23 Past Data Reviewed completed Diallo Mckeon MD [address] [place] [address],[address], [place], [address], [facility] 07/03/2022 11:55:49 03/25/19 23 Past Data Reviewed completed Diallo Mckeon MD [address] [place] [address],[address], [place], [address], [facility] 03/25/2022 15:46:28 01/23/20 21 Past Data Reviewed completed EVERETT RUFF [address] [place] [address],[address], [place], [address], [facility] 01/22/2021 10:41:21 11/28/19 21 Past Data Reviewed completed Diallo Mckeon MD [address] [place] [address],[address], [place], [address], [facility] 11/27/2020 10:50:15 09/28/19 19 Diagnostic [...] Updated DateTime 11/02/2023 185.42 cm 31.7 kg/m2 833824.17 g Jennifer Salmeron [facility] 11/02/2023 11:55:04 Social History Question Answer [...] available 07/27/2023 When Did You Quit Smoking? 16+yearssincel sylvia [email or web address] Information not available 07/28/2023 Recreational Drug Use [...] available 2020 11:17:08 Medical History Condition Response Sexually Transmitted Infection N Diabetes N Bleeding Disorder N High Blood Pressure Y Kidney Stones N Cancer Y Depression N Lung Disease N High Cholesterol Y GERD/Acid Reflux Y Heart Disease Y Immunizations Vaccine Type Date Status Provider Name and Address Organization Details Recorded Time SARS-COV-2 (COVID-19) vaccine, UNSPECIFIED 07/23/2020 completed Not Available [facility] 07/27/2023 14:04:34 SARS-COV-2 (COVID-19) vaccine, UNSPECIFIED 07/25/2019 completed Not Available [facility] 03/19/2023 13:11:33 SARS-COV-2 (COVID-19) vaccine, UNSPECIFIED 07/24/2020 completed Not Available [facility] 03/19/2023 13:11:33 SARS-COV-2 (COVID-19) vaccine, UNSPECIFIED 07/23/2020 completed Not Available [facility] 03/19/2023 13:11:33 COVID-19, mRNA, LNP-S, PF, 100 mcg/0.5mL dose or 50 mcg/0.25mL dose 06/24/2020 completed Not Available [facility] 03/19/2023 13:11:32 COVID-19, mRNA, LNP-S, PF, 100 mcg/0.5mL dose or 50 mcg/0.25mL dose 07/23/2020 completed Not Available [facility] 03/19/2023 13:11:33 pneumococcal polysaccharide PPV23 08/10/2018 completed Not Available [facility] 2023 13:11:33 Tdap 05/20/2011 completed Not Available [facility] 13:11:33 SARS-COV-2 (COVID-19) vaccine, UNSPECIFIED 07/24/2020 completed Not Available [facility] 03/19/2023 13:11:33 SARS-COV-2 (COVID-19) vaccine, UNSPECIFIED 07/24/2020 completed Not Available [facility] 03/19/2023 13:11:33 Pneumococcal conjugate PCV 13 09/07/2019 completed Not Available [facility] 03/19/2023 13:11:33 SARS-COV-2 (COVID-19) vaccine, UNSPECIFIED 08/13/2010 completed Not Available [facility] 03/19/2023 13:11:33 SARS-COV-2 (COVID-19) vaccine, UNSPECIFIED 07/24/2020 completed Not Available [facility] 03/19/2023 13:11:33 Past Encounters Encounter ID Performer Location Encounter Start Date Encounter Closed Date Diagnosis/Indication Diagnosis SNOMED-CT Code Diagnosis ICD10 Code [id number] Rayne Guevara [facility] [address] [place] [address] [place] [address] 10/19/2023 10:13:53 10/19/2023 10:42:13 History of malignant neoplasm of prostate 564962324 Z85.46 [id number] LISSETTE MERINO [facility] [address] [place] [address] 11/02/2023 11:50:09 11/02/2023 12:23:55 History of malignant neoplasm of prostate 992989839 Z85.46 Erectile d ysfunction following radical prostatectomy 1691735355 50410 N52.31 History of urinary tract infection 7404133661 107 Z87.440 Stress inc ontinence after prostatectomy 497364823 N39.3 Health Concerns Section Related Observation LastModified by Organization Detai ls LastModified Time None Recorded Concern Status LastModified by Organization Details LastModified Time None Recorded Payers Encounter Date Sequence Insurance Name Policy Number Policy Starks Covered Member ID Starks Member ID Guarantor Name 11/02/2023 1 [place]IC[place]: [employer] Matthew Lackey [id number] Matthew Lackey 11/02/2023 2 WPS - FOR LIFE (MEDICARE SUPPLEMENT) Matthew Lackey [id number] Matthew Lackey Notes Date Note Type Note Provider Name and Address Organization Details Recorded Time 11/02/2023 text/html HPI Notes: Erect ile Dysfunction Reported by patient. 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 11/30/22 Had TOV done at [facility] able to urinate but had symptoms of [...] or more pads per day LISSETTE MERINO [address] [place] [address],[address], [place], [address], [place] [facility] 11/02/2023 12:19:49
== END 2023-12-22 13:25 | disposition home or self-care (01) ==
PROVIDERS: PCP Emergency Medicine; Visit Provider Emergency Medicine
DX: Z00.00 Encounter for general adult medical examination without abnormal findings (principal); E78.5 Hyperlipidemia, unspecified; E11.9 Type 2 diabetes mellitus without complications; I10 Essential (primary) hypertension; I48.0 Paroxysmal atrial fibrillation; R17 Unspecified jaundice
CPT/HCPCS: 80053; 80061; 82043; 82248; 82570

== ENCOUNTER 2024-01-05 13:36 | Outpatient (CLI) | payer MEDICARE, OTHER, SELFPAY ==
--- OUTSIDE RECORDS SUMMARY | 2024-01-05 13:38 | XMS_ITS | Clinical Summary ---
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 30-60 minutes prior to any dental work 4 Tab 1 4 Active aspirin-acetamino phen-caffeine (EXCEDRIN MIGRAINE) 250-250-65 mg oral tablet Take 1 tablet by mouth every 4 (four) hours as needed. Active aspirin 81 mg oral chewable tablet Chew 1 tablet (81 mg) once daily. 90 tablet 3 9 Active ketoconazole 2% (NIZORAL) 2 % Top cream cream Apply to skin once daily. 60 g 1 1 Active meclizine (ANTIVERT) 25 mg oral tabletIndications :Vertigo Take 1 tablet (25 mg) by mouth at bedtime as needed. 30 tablet 1 Active propranolol HCl (PROPRANOLOL ORAL) Take 40 mg by mouth once daily. Active primidone (MYSOLINE) 50 mg oral tabletIndications :Tremor TAKE 1/2 TABLET(25 MG) BY MOUTH EVERY DAY 45 tablet 3 2 Active triamcinolone acetonide (KENALOG) 0.1% creamIndications: Dermatitis Apply to skin twice a day. 80 g 3 2 Active simvastatin (ZOCOR) 40 mg oral tablet Take 1 tablet (40 mg) by mouth at bedtime. 90 tablet 3 3 Active carvedilol (COREG) 3.125 mg oral tabletIndications :Paroxysmal atrial fibrillation (HCC) TAKE 1 TABLET(3.125 MG) BY MOUTH TWICE DAILY WITH BREAKFAST AND DINNER 180 tablet 3 Active metFORMIN ER (GLUCOPHAGE XR) 500 mg oral extended release tablet 24 HRIndications:Typ e 2 diabetes mellitus without complication, without long-term current use of insulin (HCC) TAKE 2 TABLETS(1000 MG) BY MOUTH EVERY DAY 180 tablet 4 Active tamsulosin (FLOMAX) 0.4 mg oral capsule TAKE 1 CAPSULE(0.4 MG) BY MOUTH TWICE DAILY 180 capsule 4 Active famotidine (PEPCID) 20 mg oral tablet Take 1 tablet (20 mg) by mouth once daily. (1 tablet = 20 mg) 90 tablet 4 Active losartan (COZAAR) 25 mg oral tabletIndications :Essential hypertension TAKE 1 TABLET(25 MG) BY MOUTH EVERY DAY 90 tablet 3 4 Active Active Problems Problem Noted Date Diagnosed Date Type 2 diabetes mellitus wit hout complication, without long-term current use of insulin 04/20/2022 PAF (paroxysmal atrial fibrillation) 04/29/2021 Overview (04/29/2021): Declined DOAC Assessment & Plan (11/24/2021 11:58 AM CDT): Carvedilol 3.125 mg [facility] core of 3 On Aspirin Tremor 11/10/2018 [...] (Moderna) 12+ Yrs M onovalent COVID Vaccine (credit coordinator) 07/23/2020,06/24/2020 Tdap 05/20/2011 UNSPECIFIED SARS-CoV-2 Vaccination 07/24/2020 Family History Medical History Relation Comments Lung Cancer Father age 73 Brain/[employer] SOL[employer] ARCHITECT Cancer Mother High Blood Pressure Mother Lung [...] Assigned at Male 11/02/2021 9:34 AM CDT Legal Sex Male 11:53 AM CDT Gender Identity Male 11/02/2021 9:34 AM CDT Sexual Orientation Straight 11/02/2021 9: 34 AM CDT 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 [employer] Not on file Not on carrillo e Not on file Last Filed Vital Signs Vital Sign Reading Time Taken Comments Blood Pressure 128/78 04/20/2022 12:57 PM [employer] [employer] Pulse 91 04/20/2022 12:57 PM [employer] [employer] Temperature 36.3 ??C (97.4 ??F) 04/20/2022 1 2:57 PM [employer] [employer] Respiratory Rate 16 11/24/2021 11:2 5 AM CDT Oxygen Saturation 98% 11/24/2021 11: 25 AM CDT Inhaled Oxygen Concentration - - Weight 114.3 kg (251 lb 14.4 oz) 2022 12:57 PM [employer] [employer] Height 185.4 cm (6' 1) 04/20/2022 12:5 7 PM [employer] [employer] Body Mass Index 33.23 04/20/2022 12:57 PM [employer] [employer] Plan of Treatment Health Maintenance Due Date Last Done Comments Eye Exam 1950 Depression Assessment (PHQ-2) 12[birth year]29/1951 Zoster Vaccine (1 of 2) 12/29/2001 Adult Tetanus Booster 05/19/2021 05/20/2011 Microalbumin Q12 Month 04/29/2022 04/29/2021 HgbA1C 05/25/2022 11/24/2021, 03/0 09/2021, 01/10/2021, Additional history exists Medicare Wellness Visit 11/24/2022 11/25/19 22, 11/24/2021, 09/13/2020, Additional history exists Yearly Review [...] , 08/10/2018 Medical Devices Implanted Type Area Bridge/Structure Inspection Team Leader Device Identifier Shelf Expiration Date Model / Serial / Lot Valve Bhatia Aortic 25m 3000 - [id number] Implanted:Qty: 1 on 06/18/2011 at [facility] Valve N/A: Heart [employer] 10/16/2014 3000 / [id number] / Procedures Procedure Name Priority Date/Time Associated Diagnosis Comments BASIC METABOLIC PANEL 8 ([facility]) Routine 04/20/2022 1:35 PM [employer] [employer] Hypertension, isolated systolic Type 2 diabetes mellitus without complication, without long-term current use of insulin (HCC) (yes) (HCC) HGB A1C ([facility]) OP Routine 11/24/2021 12:11 PM CDT Type 2 diabetes mellitus without complication, without long-term current use of insulin (HCC) (yes) (HCC) ALBUMIN/CREATININE RATIO, URINE ([facility]) Routine 04/29/2021 12:54 PM [employer] Type 2 diabetes mellitus without complication, without [...] METABOLIC PANEL 8 ([facility]) (04/20/2022 1:35 PM [facility]) [facility] Glucose ([facility]) 169(H) 70 - 99 mg/dL 04/21/2022 4:08 PM [employer] [employer] BUN ([facility]) 14 8 - 27 mg/dL 04/21/2022 4:08 PM [employer]OCKST[employer] [facility] Creatinine ([facility]) 0.81 0.76 - 1.27 mg/dL 04/21/2022 4:08 PM [employer] LOCKSTITCH [facility] eGFR ([facility]) 95 >59 mL/min/1.7 3 04/21/2022 4:08 PM [employer]OCKST[employer] [facility] BUN/Creatinine Ratio ([facility]) 17 10 - 24 04/21/2022 4:08 PM [employer] [employer]OCKST[facility] Sodium ([facility]) 141 134 - 144 mmol/L 04/21/2022 4:08 PM [employer]ST[employer] [facility] Potassium ([facility]) 4.5 3.5 - 5.2 mmol/L 04/21/2022 4:08 PM [employer] [employer] Chloride ([facility]) 103 96 - 106 mmol/L 04/21/2022 4:08 PM [employer] [facility] Carbon Dioxide ([facility]) 24 20 - 29 mmol/L 04/21/2022 4:08 PM [employer]ST[employer] [facility] Calcium ([facility]) 8.9 8.6 - 10.2 mg/dL 04/21/2022 4:08 PM [employer] [employer]OCKST[employer] [facility] Blood Venipuncture / Unknown 04/20/2022 1:35 PM [facility] 04/20/2022 1:35 PM [facility] Narrative [facility] - 04/21/2022 4:08 PM [facility]ST[facility] Performed at: ??01 - [facility] ??[id number] Coupling Machine Operator: Jared Arrieta MD, Phone: ??[phone] us Rebekah Azevedo DO [facility] ORDERABLES Final Resul t [facility] [address] [id number] * (ABNORMAL) HGB A1C ([facility]) OP (11/24/2021 12:11 PM CDT) HGBA1C OP 6.3(H) <=5.6 % 11/24/2021 12:31 PM CDT [facility] EST AVERAGE GLUCOSE OP 134(H) <=114 mg/dL 11/24/2021 12:31 PM CDT [facility] Blood Venipuncture / Unknown 11/24/2021 12:11 PM CDT 11/24/2021 12:11 PM CDT us Nicky B Stephens MBBS CHEMISTRY ORDERABLE Final Resu lt [facility] [place] [address] [facility] [address] [place] [address], * (ABNORMAL) ALBUMIN/CREATININE RATIO, URINE ([facility]) (04/29/2021 12:54 PM [employer] [employer]) Creatinine Urine ([facility]) 91.7 Not Estab. mg/dL 04/30/2021 12:08 PM [facility] Albumin Urine. ([facility]) 49.4 Not Estab. ug/mL 04/30/2021 12:08 PM [facility] Albumin/Creatin ine Ratio ([facility]) 54(H) 0 - 29 mg/g creat 04/30/2021 12:08 PM [facility] Comment: ? Normal: ?0 - ??29 ? Moderately increased: 30 - 300 ? Severely increased: ? >300 Urine specimen (specimen) 04/29/2021 12:54 PM [facility] 04/29/2021 12:54 PM [facility] - 04/30/2021 12:08 PM [facility] LOCKST[facility] Performed at: ??01 - [facility] ??[id number] Coupling Machine Operator: Jared Arrieta MD, Phone: ??[phone] us Eusebia Martel MD [facility] ORDERABLES Final Resul t [facility] [address] [place] [id number] * US ABDOMEN AORTA SCREENING (09/07/2019 11:58 [...] aneurysm. REPORT SIGNED BY DR. Saul George us Eusebia Martel MD ULTRASOUND ORDERABLE Final Res ult * HEP C ANTIBODY (09/07/2019 10:46 AM CDT) Hepatitis C Antibody Non-Reacti ve Non-Reacti ve 09/07/2019 11:44 PM CDT [facility] Blood specimen (specimen) Venipuncture / Unknown 09/07/2019 10:46 AM CDT 09/07/2019 10:46 AM CDT us Eusebia Martel MD IMMUNOLOGY ORDERABLE Final Res ult [facility] [address] [place] [address] from Last 3 Months or Most Recently Relevant to Health Maintenance Insurance [employer] [facility] Supplemental Address: 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
--- OUTSIDE RECORDS SUMMARY | 2024-01-05 13:39 | XMS_ITS | Clinical Summary ---
Author Organization [facility] Address [place], [place] [address] Care Team Providers Care Truant Officer Name Role Phone [facility] - Primary Care Provider Allergies Active [...] Code Status Discussion: Reviewed Preferences Care Teams Truant Officer Relationship Specialty Start Date End Date [facility] - [address] [address] [address] [place] [phone] PCP - General Family Practice 04/06/22
--- OUTSIDE RECORDS SUMMARY | 2024-01-05 13:39 | XMS_ITS | Continuity of Care Document ---
Author Organization [facility], [facility] New Address [address] [facility] [place] [address] Care Team Providers Care Pharmacy Service Associate Name Role Phone [facility] Primary Care Provid er CE VALLEJO Referring Provider Assessment No assessment recorded. Plan of Treatment Reminders Order Date Submit Date Provider Last Modified By Organization Details Last Modified Time Details Appointments ESTABLISH ED 30 2024 11:00A LISSETTE ZEPEDA Not available Not available Not available Lab PSA, total, serum or plasma [address] [facility], [address] [place] [address], [place] [address], [address], 10/19/2023 18:22:25 Referral None recorded. Procedures None recorded. Surgeries None recorded. Imaging None recorded. Medication Orders None recorded. Patient TargetsNo targets recorded. Patient InstructionsNo instructions recorded. Reason for Referral None Reported. Problems No Known Problems Procedures Surgical History Date Name Laterality Status Provider Name and Address Organization Details Recorded Time 11/03/19 24 Past Data Reviewed completed Diallo Mckeon MD [address] [facility],[address], [address], [facility] 10/27/2023 13:51:27 11/02/19 24 Past Data Reviewed completed LISSETTE MERINO [address] [facility],[address], [address], [facility] 11/02/2023 12:00:56 10/19/19 24 Blood Draw/SQL DATABASE DEVELOPER/PSA RESULTS completed Rayne RICO - [facility] 10/19/2023 10:26:06 07/28/19 24 Past Data Reviewed completed Diallo Mckeon MD [address] [place] [address],[address], [place], [address], [facility] 07/28/2023 08:52:09 07/23/19 24 Blood Draw/SQL DATABASE DEVELOPER/PSA RESULTS completed Hellen Pratt [facility] 07/23/2023 12:54:54 02/24/19 24 Past Data Reviewed completed Diallo Mckeon MD [address] [place] [address],[address], [place], [address], [facility] 02/22/2023 19:01:50 02/13/20 23 Blood Draw/SQL DATABASE DEVELOPER/PSA RESULTS completed Wandy Guevara [facility] 02/12/2023 13:56:59 12/01/19 23 Past Data Reviewed completed Diallo Mckeon MD [address] [place] [address],[address], [place], [address], [facility] 11/30/2022 17:46:08 12/01/19 23 Fill and Pull/Voiding Trial/TOV completed Ria Hirsch [facility] 11/30/2022 10:56:23 09/26/19 23 Past Data Reviewed completed Diallo Mckeon MD [address] [place] [address],[address], [place], [address], [facility] 09/25/2022 10:11:06 07/04/19 23 Past Data Reviewed completed Diallo Mckeon MD [address] [place] [address],[address], [place], [address], [facility] 07/03/2022 11:55:49 03/25/19 23 Past Data Reviewed completed Diallo Mckeon MD [address] [place] [address],[address], [place], [address], [facility] 03/25/2022 15:46:28 01/23/20 21 Past Data Reviewed completed EVERETT RUFF [address] [place] [address],[address], [place], [address], [facility] 01/22/2021 10:41:21 11/28/19 21 Past Data Reviewed completed Diallo Mckeon MD [address] [facility],[address], [place], [address], [facility] 11/27/2020 10:50:15 09/28/19 19 Diagnostic [...] t Available Vitals Date Recorded Body height Provider Name an d Address Organization Details Last Updated DateTime 10/19/2023 185.42 cm Rayne Guevara [place] [facility] 10/19/2023 10:17:43 Social History Question Answer Notes LastModified by [...] When Did You Quit Smoking? 17[facility] [email or web address] Information not available 07/28/2023 Recreational Drug Use [...] available 2020 11:17:08 Medical History Condition Response Diabetes N Sexually Transmitted Infection N Bleeding Disorder N High Blood Pressure Y Kidney Stones N Cancer Y Lung Disease N Depression N High Cholesterol Y GERD/Acid Reflux Y Heart Disease Y Immunizations Vaccine Type Date Status Provider Name and Address Organization Details Recorded Time SARS-COV-2 (COVID-19) vaccine, UNSPECIFIED 07/23/2020 completed Not Available [facility] 07/27/2023 14:04:34 SARS-COV-2 (COVID-19) vaccine, UNSPECIFIED 07/25/2019 completed Not Available [facility] 03/19/2023 13:11:33 SARS-COV-2 (COVID-19) vaccine, UNSPECIFIED 07/24/2020 completed Not Available [facility] 03/19/2023 13:11:33 SARS-COV-2 (COVID-19) vaccine, UNSPECIFIED 07/23/2020 completed Not Available [facility] 03/19/2023 13:11:33 COVID-19, mRNA, LNP-S, PF, 100 mcg/0.5mL dose or 50 mcg/0.25mL dose 06/24/2020 completed Not Available [facility] 03/19/2023 13:11:32 COVID-19, mRNA, LNP-S, PF, 100 mcg/0.5mL dose or 50 mcg/0.25mL dose 07/23/2020 completed Not Available [facility] 03/19/2023 13:11:33 pneumococcal polysaccharide PPV23 08/10/2018 completed Not Available [facility] 2023 13:11:33 Tdap 05/20/2011 completed Not Available [facility] 13:11:33 SARS-COV-2 (COVID-19) vaccine, UNSPECIFIED 07/24/2020 completed Not Available [facility] 03/19/2023 13:11:33 SARS-COV-2 (COVID-19) vaccine, UNSPECIFIED 07/24/2020 completed Not Available [facility] 03/19/2023 13:11:33 Pneumococcal conjugate PCV 13 09/07/2019 completed Not Available [facility] 03/19/2023 13:11:33 SARS-COV-2 (COVID-19) vaccine, UNSPECIFIED 08/13/2010 completed Not Available [facility] 03/19/2023 13:11:33 SARS-COV-2 (COVID-19) vaccine, UNSPECIFIED 07/24/2020 completed Not Available [facility] 03/19/2023 13:11:33 Past Encounters Encounter ID Performer Location Encounter Start Date Encounter Closed Date Diagnosis/Indication Diagnosis SNOMED-CT Code Diagnosis ICD10 Code [id number] Rayne Jaime_Tee n [place] [address] [place] [address] 10/19/2023 10:13:53 10/19/2023 10:42:13 History of malignant neoplasm of prostate 309155713 Z85.46 Health Concerns Section Related Observation LastModified by Organization Detai ls LastModified Time None Recorded Concern Status LastModified by Organization Details LastModified Time None Recorded Payers Encounter Date Sequence Insurance Name Policy Number Policy Starks Covered Member ID Starks Member ID Guarantor Name 10/19/2023 1 [place] [employer] Matthew Lackey [id number] Matthew Lackey 10/19/2023 2 [employer] - FOR LIFE (MEDICARE SUPPLEMENT) Matthew Lackey [id number] Matthew Lackey
--- OUTSIDE RECORDS SUMMARY | 2024-01-05 13:39 | XMS_ITS | Referral Summary ---
Author Organization [place] Address [address] [place] [address] Care Team Providers Care Pharmacy Scheduler Name Role Phone Clinic, [facility] P rovider Allergies Active [...] Advance Directives For more information, please contact: [phone] * Full Code (Latest Code Status on [...] catherine nt/ legal decision maker Care Teams Pharmacy Scheduler Relationship Specialty Start Date End Date [facility] [address] [place] [address] PCP - General 08/18/20
--- OUTSIDE RECORDS SUMMARY | 2024-01-05 13:39 | XMS_ITS | Clinical Summary ---
Author Organization [place] Address [address] [place] [address] Care Team Providers Care Food And Beverage Checker Name Role Phone Clinic, [facility] P rovider Allergies Active [...] Advance Directives For more information, please contact: [phone] * Full Code (Latest Code Status on [...] catherine nt/ legal decision maker Care Teams Food And Beverage Checker Relationship Specialty Start Date End Date [facility] [address] [place] [address] PCP - General 08/18/20
--- OUTSIDE RECORDS SUMMARY | 2024-01-05 13:39 | XMS_ITS | Data Portability ---
Author Organization [facility], [facility] Address [address] [place] [address] Care Team Providers Care Safety Investigator Name Role Phone [facility] Primary Care Provid er CE VALLEJO Referring Provider Assessment No assessment recorded. Plan of Treatment Reminders Order Date Submit Date Provider Last Modified By Organization Details Last Modified Time Details Appointments ESTABLISH ED 30 2024 11:00A LISSETTE ZEPEDA Not available Not available Not available Lab PSA, total, serum or plasma 2023 024 [facility], [address], [place], [address], 07/27/2023 18:27:24 PSA, total, serum or plasma 2023 024 [facility], [address] [facility], [address], [place], [address], 10/19/2023 18:22:25 Referral None recorded. Procedures None recorded. Surgeries None recorded. Imaging None recorded. Medication Orders sildenafi l 100 mg tablet 2023 024 [id number], [address] [place], [place], [id number], 11/02/2023 12:19:17 Patient TargetsNo targets recorded. Patient Instructions Encounter Date Encounter Id Patient Instructions Last Modified By Organization Details Last Modified Time 07/28/2023 [id number] history of prost ate cancer for which he underwent a robotic radical prostatectomy and bilateral pelvic lymphadenectomy on 11/10/22 for Nilesh 4 + 3 = 7/10 (ISUP grade group 3), with Wakeeney pattern 4 representing approximately 60% of tumor [...] ready jakornor Not available 07/28/2023 14:11:02 11/02/2023 [id number] history of prost ate cancer for which he underwent a robotic radical prostatectomy and bilateral pelvic lymphadenectomy on 11/10/22 for Nilesh 4 + 3 = 7/10 (ISUP grade group 3), with Wakeeney pattern 4 representing approximately 60% of tumor [...] ready vamanor Not available 11/02/2023 12:18:38 11/03/2023 [id number] history of prost ate cancer for which he underwent a robotic radical prostatectomy and bilateral pelvic lymphadenectomy on 11/10/22 for Wakeeney 4 + 3 = 7/10 (ISUP grade [...] provi meka at the same time in [facility] with the u ry Cures Act. Your provi meka may not have had time to revie w and make recom menda tions based on the resul t. Pleas e allow up to one week for provi meka revie w. Not Available [facility] [address], [place], [address], 07/27/2023 18:27:24 10/19/19 24 10/19/2023 PSA, TOTAL PSA, total <0.10 NG/mL <4.0 This lab resul t is being provi ded to you and your provi meka at the same time in [facility] with the Centu ry Cures Act. Your provi meka may not have had time to revie w and make recom menda tions based on the resul t. Pleas e allow up to one week for provi meka revie w. Not Available [facility] [address] [facility] [address], [place], [address], 10/19/2023 18:22:25 Result Notes None recorded. Problems No Known Problems Procedures Surgical History Date Name Laterality Status Provider Name and Address Organization Details Recorded Time 11/03/19 24 Past Data Reviewed completed Diallo Mckeon MD [address] [place] [address],[address], [address], [facility] 10/27/2023 13:51:27 11/02/19 24 Past Data Reviewed completed LISSETTE MERINO [address] [place] [address],[address], [place], [address], [facility] 11/02/2023 12:00:56 10/19/19 24 Blood Draw/MOTOR ROOM CONTROLLER/PSA RESULTS completed Rayne Guevara [facility] 10/19/2023 10:26:06 07/28/19 24 Past Data Reviewed completed Diallo Mckeon MD [address] [place] [address],[facility] [address], [place], [address], [facility] 07/28/2023 08:52:09 07/23/19 24 Blood Draw/MOTOR ROOM CONTROLLER/PSA RESULTS completed Hellen Pratt [facility] 07/23/2023 12:54:54 02/24/19 24 Past Data Reviewed completed Diallo Mckeon MD [address] [place] [address],[address], [place], [address], [facility] 02/22/2023 19:01:50 02/13/20 23 Blood Draw/MOTOR ROOM CONTROLLER/PSA RESULTS completed Wandy Guevara [facility] 02/12/2023 13:56:59 12/01/19 23 Past Data Reviewed completed Diallo Mckeon MD [address] [place] [address],[address], [place], [address], [facility] 11/30/2022 17:46:08 12/01/19 23 Fill and Pull/Voiding Trial/TOV completed Ria Hirsch [facility] 11/30/2022 10:56:23 09/26/19 23 Past Data Reviewed completed Diallo Mckeon MD [address] [place] [address],[address], [place], [address], [facility] 09/25/2022 10:11:06 07/04/19 23 Past Data Reviewed completed Diallo Mckeon MD [address] [place] [address],[address], [place], [address], [facility] 07/03/2022 11:55:49 03/25/19 23 Past Data Reviewed completed Diallo Mckeon MD [address] [place] [address],[address], [place], [address], [facility] 03/25/2022 15:46:28 01/23/20 21 Past Data Reviewed completed EVERETT RUFF [address] [place] [address],[address], [place], [address], [facility] 01/22/2021 10:41:21 11/28/19 21 Past Data Reviewed completed Diallo Mckeon MD [address] [place] [address],[address], [place], [address], [facility] 11/27/2020 10:50:15 09/28/19 19 Diagnostic colonoscopy [...] Updated DateTime 07/23/2023 185.42 cm 32.3 kg/m2 878283.13 g Hellen Pratt [facility] 07/23/2023 16:40:23 Date Recorded Body mass index (BMI) Body weight Body height Provider Name and Address Organization Details Last Updated DateTime 07/28/2023 32.3 kg/m2 507990.1913 63977 g 185.42 cm Not Available Health Note 07/28/2023 13:48:19 Date Recorded Body height Provider Name an d Address Organization Details Last Updated DateTime 10/19/2023 185.42 cm Rayne Guevara [facility] 10/19/2023 10:17:43 Date Recorded Body height Body mass index (BMI) Body weight Provider Name and Address Organization Details Last Updated DateTime 11/02/2023 185.42 cm 31.7 kg/m2 271172.17 g Jennifer Salmeron [facility] 11/02/2023 11:55:04 Social History Question Answer [...] When Did You Quit Smoking? 17[facility] [id number] Information not available 07/28/2023 Recreational Drug Use [...] (COVID-19) vaccine, UNSPECIFIED 07/25/2019 completed Not Available [facility] 03/19/2023 13:11:33 SARS-COV-2 (COVID-19) vaccine, UNSPECIFIED 07/24/2020 completed Not Available [facility] 03/19/2023 13:11:33 SARS-COV-2 (COVID-19) vaccine, UNSPECIFIED 07/23/2020 completed Not Available [facility] 03/19/2023 13:11:33 COVID-19, mRNA, LNP-S, PF, 100 mcg/0.5mL dose or 50 mcg/0.25mL dose 06/24/2020 completed Not Available [facility] 03/19/2023 13:11:32 COVID-19, mRNA, LNP-S, PF, 100 mcg/0.5mL dose or 50 mcg/0.25mL dose 07/23/2020 completed Not Available [facility] 03/19/2023 13:11:33 pneumococcal polysaccharide PPV23 08/10/2018 completed Not Available [facility] 2023 13:11:33 Tdap 05/20/2011 completed Not Available [facility] 13:11:33 SARS-COV-2 (COVID-19) vaccine, UNSPECIFIED 07/24/2020 completed Not Available [facility] 03/19/2023 13:11:33 SARS-COV-2 (COVID-19) vaccine, UNSPECIFIED 07/24/2020 completed Not Available [facility] 03/19/2023 13:11:33 Pneumococcal conjugate PCV 13 09/07/2019 completed Not Available [facility] 03/19/2023 13:11:33 SARS-COV-2 (COVID-19) vaccine, UNSPECIFIED 08/13/2010 completed Not Available [facility] 03/19/2023 13:11:33 SARS-COV-2 (COVID-19) vaccine, UNSPECIFIED 07/24/2020 completed Not Available [facility] 03/19/2023 13:11:33 Past Encounters Encounter ID Performer Location Encounter Start Date Encounter Closed Date Diagnosis/Indication Diagnosis SNOMED-CT Code Diagnosis ICD10 Code [id number] MD Addison [facility] [address] [employer],[address] [address] 11/27/2020 09:44:41 11/27/2020 11:41:43 Prostate specific antigen above reference range 789858113 R97.20 Benign pro static hyperplasia with outflow obstruction 107683479 N40.1 Dysuria 23555296 R30.9 Family his tory of malignant neoplasm of prostate 524381759 Z80.42 Acute urin soraya tract infection 508391059 N39.0 [id number] MD Addison [facility] [address] [employer],[address] [address] 01/22/2021 10:31:32 01/22/2021 11:32:13 Prostate specific antigen above reference range 436613805 R97.20 Benign pro static hyperplasia with outflow obstruction 433993416 N40.1 Dysuria 12464485 R30.9 Family his tory of malignant neoplasm of prostate 949052963 Z80.42 History of urinary tract infection 1588615609 107 Z87.440 [id number] MD Addison [facility] [employer],[address] [address] 03/25/2022 14:49:41 03/25/2022 15:51:47 Prostate specific antigen above reference range 180716424 R97.20 Benign pro static hyperplasia with outflow obstruction 223692354 N40.1 Family his tory of malignant neoplasm of prostate 032820473 Z80.42 History of urinary tract infection 8782417757 107 Z87.440 [id number] MD Ken[place] [address] [address] [facility],[address] [place] [address] 07/03/2022 11:36:10 07/03/2022 12:19:28 Benign prostatic hyperplasia with outflow obstruction 153100003 N40.1 Malignant tumor of prostate 457924998 C61 Imaging of musculoskeletal system abnormal 918711884 R93.7 [id number] MD Kenia [place]atham [place] [address] [address],[facility] [address] [place] [address] 09/25/2022 11:04:41 09/25/2022 12:21:02 Benign prostatic hyperplasia with outflow obstruction 795152644 N40.1 Malignant tumor of prostate 212060209 C61 Imaging of musculoskeletal system abnormal 855349506 R93.7 [id number] Ria Hirsch [facility] [address] [facility] [place] [address] 11/30/2022 08:27:13 11/30/2022 16:10:43 Malignant tumor of prostate 907159526 C61 [id number] MD Nanette [place] [address] [address] 11/30/2022 17:02:28 12/04/2022 11:27:16 History of malignant neoplasm of prostate 657127289 Z85.46 Erectile d ysfunction following radical prostatectomy 8003811019 90643 N52.31 Painful ur ging to urinate 16091118 R30.0 [id number] MD Addison [place] [address] [address] 01/01/2023 10:42:34 01/01/2023 11:12:09 History of malignant neoplasm of prostate 775239451 Z85.46 Erectile d ysfunction following radical prostatectomy 2659992226 19101 N52.31 History of urinary tract infection 4718572667 107 Z87.440 Stress inc ontinence after prostatectomy 289980076 N39.3 [id number] Wandy Guevara [facility] [address],[facility] [address] [place] [address] 02/12/2023 13:45:48 02/17/2023 09:37:09 History of malignant neoplasm of prostate 663445448 Z85.46 [id number] Diallo Mckeon MD [facility] [address] [employer],[address] [address] [place] [address] 02/24/2023 10:38:22 02/24/2023 12:07:03 History of malignant neoplasm of prostate 235491492 Z85.46 Erectile d ysfunction following radical prostatectomy 2793549857 82994 N52.31 History of urinary tract infection 7853268634 107 Z87.440 Stress inc ontinence after prostatectomy 272588898 N39.3 [id number] Hellen Pratt [facility] [address],[facility] [address] [place] [address] 07/23/2023 16:37:12 07/26/2023 08:21:19 History of malignant neoplasm of prostate 688092425 Z85.46 [id number] Diallo Mckeon MD [facility] [address],[facility] [address] [place] [address] 07/28/2023 13:48:10 07/28/2023 16:22:01 History of malignant neoplasm of prostate 289098989 Z85.46 Erectile d ysfunction following radical prostatectomy 0273683993 01570 N52.31 History of urinary tract infection 9882086566 107 Z87.440 Stress inc ontinence after prostatectomy 785250025 N39.3 [id number] Rayne Guevara [facility] [place] [address] [place] [address] [place] [address] 10/19/2023 10:13:53 10/19/2023 10:42:13 History of malignant neoplasm of prostate 465897337 Z85.46 [id number] Diallo Mckeon MD [facility] [place] [address] [place] [address] 11/03/2023 16:09:33 11/04/2023 10:56:19 History of malignant neoplasm of prostate 024267809 Z85.46 Erectile d ysfunction following radical prostatectomy 4231179547 53543 N52.31 History of urinary tract infection 2172189848 107 Z87.440 Stress inc ontinence after prostatectomy 037754928 N39.3 [id number] LISSETTE MERINO [facility] [place] [address] [place] [address] 11/02/2023 11:50:09 11/02/2023 12:23:55 History of malignant neoplasm of prostate 859694203 Z85.46 Erectile d ysfunction following radical prostatectomy 5389661069 83393 N52.31 History of urinary tract infection 3617730554 107 Z87.440 Stress inc ontinence after prostatectomy 752902541 N39.3 Health Concerns Section Related Observation LastModified by Organization Detai ls LastModified Time None Recorded Concern Status LastModified by Organization Details LastModified Time None Recorded Advance Directives Directive None Recorded Payers Encounter Date Sequence Insurance Name Policy Number Policy Starks Covered Member ID Starks Member ID Guarantor Name 07/23/2023 1 MEDICARE B-[place]: [employer] [facility] Matthew Mary Throne [id number] Matthew Mary Throne 07/23/2023 2 WPS - FOR LIFE (MEDICARE SUPPLEMENT) Matthew Purine [id number] Matthew Hernandez Throne 07/28/2023 1 [place] [employer] [facility] Matthew Mary Throne [id number] Matthew Hernandez Throne 07/28/2023 2 WPS - FOR LIFE (MEDICARE SUPPLEMENT) Matthew Purine [id number] Matthew Hernandez Throne 10/19/2023 1 [place] [employer] [facility] Matthew Mary Throne [id number] Matthew Mary Throne 10/19/2023 2 WPS - FOR LIFE (MEDICARE SUPPLEMENT) Matthew Mary Throne [id number] Matthew Hernandez Throne 11/02/2023 1 [place] [employer] [facility] Matthew Mary Throne [id number] Matthew Hernandez Throne 11/02/2023 2 WPS - FOR LIFE (MEDICARE SUPPLEMENT) Matthew V Throne [id number] Matthew Mary Throne 11/03/2023 1 [place] [employer] [facility] Matthew Mary Throne [id number] Matthew Mary Throne 11/03/2023 2 WPS - FOR LIFE (MEDICARE SUPPLEMENT) Matthew Hernandez Throne [id number] Matthew Lackey Notes Date Note Type Note Provider Name and Address Organization Details Recorded Time 4 text/html 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 UCX confirmed Ecoli UTICompleted 1 week course of Cipro 500 mg po bid and UTI resolvedHis PSA is now undetectable.He is on quarterly follow-up with PSA.reported moderate ISREAL and was referred for PFPT and since noted improvementAlso has ED on TADALAFIL 5 mg daily without improvement, EDUIN added but noted some improvement so wants to hold off on VEDback for f/u todayno new complaints Continence Function Questionnaire:[3] Urinary control:Frequent dribbling[5] Leaked urine:Several times a day[4] How big of a problem urinary function has been:Moderate[4] Number of pads/adult diapers used:3 or more pads per day Diallo Mckeon MD [address] [place] [address],[address], [place], [address], [facility] 07/28/2023 14:14:07 4 text/html Erectile DysfunctionReported bypatient.Notes:EHS of 4 prior to surgery with no MedicationTadalafil 5mg with EHS of 0Standard nerve sparing with good cosmetic effect on the right and left 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 UCX confirmed Ecoli UTICompleted 1 week course of Cipro 500 mg po bid and UTI resolvedHis PSA is now undetectable.He is on quarterly follow-up with PSA.reported moderate ISREAL and was referred for PFPT and since noted improvementAlso has ED on TADALAFIL 5 mg daily without improvement, EDUIN added but noted some improvement so wants to hold off on EDUIN Continence Function Questionnaire:[3] Urinary control:Frequent dribbling[5] Leaked urine:Several times a day[4] How big of a problem urinary function has been:Moderate[4] Number of pads/adult diapers used:3 or more pads per day LISSETTE MERINO [address] [place] [address],[address], [place], [address], [facility] 11/02/2023 12:19:49 4 text/html Prior to conducting our video visit, the [...] = 7/10 (ISUP grade group 3), with Wakeeney pattern 4 representing approximately 60% of tumor with negative marginsTook twice as long to perform due to poor urethral tissue quality that made anastomosis very challenging(+22 modifier).11/30/22 Had TOV done at able to urinate but had symptoms of UTI-flank pain, urgency and pain. UCX confirmed Ecoli UTICompleted 1 week course of Cipro 500 mg po bid and UTI resolvedHis PSA remains undetectable.He is on quarterly follow-up with PSA.ISREAL improving with PFPTAlso has ED on TADALAFIL 5 mg daily without improvement, saw LISSETTE Merino regarding EDand medication switched to Sildenafil. Yet to try it.no new complaints Diallo Mckeon MD [address] [facility],[address], [place], [address], [facility] 11/03/2023 17:24:00
--- OUTSIDE RECORDS SUMMARY | 2024-01-05 13:39 | XMS_ITS | Referral Summary ---
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[employer] Not on file Not on carrillo e Not on file Last Filed Vital Signs Vital Sign Reading Time Taken Comments Blood Pressure 128/78 04/20/2022 12:57 PM [employer] Pulse 91 04/20/2022 12:57 PM [employer] Temperature 36.3 ??C (97.4 ??F) 04/20/2022 1 2:57 PM [employer] Respiratory Rate 16 11/24/2021 11:2 5 AM CDT Oxygen Saturation 98% 11/24/2021 11: 25 AM CDT Inhaled Oxygen Concentration - - Weight 114.3 kg (251 lb 14.4 oz) 2022 12:57 PM [employer] Height 185.4 cm (6' 1) 04/20/2022 12:5 7 PM [employer] Body Mass Index 33.23 04/20/2022 12:57 PM [employer] Plan of Treatment Not on file Medical Devices Implanted Type Area Convention Planner Device Identifier Shelf Expiration Date Model / Serial / Lot Valve Bhatia Aortic 25m 3000 - [id number] Implanted:Qty: 1 on 06/18/[address] [facility] Valve N/A: Heart [employer] 10/16/2014 3000 / [id number] / Procedures Procedure Name Priority Date/Time Associated Diagnosis Comments BASIC METABOLIC PANEL 8 ([facility]) Routine 04/20/2022 1:35 PM TIRE TR[employer] Hypertension, isolated systolic Type 2 diabetes mellitus without complication, without long-term current use of insulin (HCC) (yes) (HCC) HGB A1C ([facility]) OP Routine 11/24/2021 12:11 PM CDT Type 2 diabetes mellitus without complication, without long-term current use of insulin (HCC) (yes) (HCC) ALBUMIN/CREATININE RATIO, URINE ([facility]) Routine 04/29/2021 12:54 PM TIRE TRIMMER HAND Type 2 diabetes mellitus without complication, without [...] METABOLIC PANEL 8 ([facility]) (04/20/2022 1:35 PM TIRE TRIMMER HAND) [facility] Glucose ([facility]) 169(H) 70 - 99 mg/dL 04/21/2022 4:08 PM TIRE TRIMMER HAND [facility] BUN ([facility]) 14 8 - 27 mg/dL 04/21/2022 4:08 PM TIRE TRIMMER HAND [facility] Creatinine ([facility]) 0.81 0.76 - 1.27 mg/dL 04/21/2022 4:08 PM TIRE TRIMMER HAND [facility] eGFR ([facility]) 95 >59 mL/min/1.7 3 04/21/2022 4:08 PM TIRE TRIMMER HAND [facility] BUN/Creatinine Ratio ([facility]) 17 10 - 24 04/21/2022 4:08 PM TIRE TRIMMER HAND [facility] Sodium ([facility]) 141 134 - 144 mmol/L 04/21/2022 4:08 PM TIRE TRIMMER HAND [facility] Potassium ([facility]) 4.5 3.5 - 5.2 mmol/L 04/21/2022 4:08 PM TIRE TRIMMER HAND [facility] Chloride ([facility]) 103 96 - 106 mmol/L 04/21/2022 4:08 PM TIRE TRIMMER HAND [facility] Carbon Dioxide ([facility]) 24 20 - 29 mmol/L 04/21/2022 4:08 PM TIRE TRIMMER HAND [facility] Calcium ([facility]) 8.9 8.6 - 10.2 mg/dL 04/21/2022 4:08 PM TIRE TRIMMER HAND [facility] Blood Venipuncture / Unknown 04/20/2022 1:35 PM TIRE TRIMMER HAND 04/20/2022 1:35 PM TIRE TRIMMER HAND Narrative [facility] - 04/21/2022 4:08 PM TIRE TRIMMER HAND Performed at: ??01 - [address] ??[id number] [employer] Machine Operator: Jared Arrieta MD, Phone: ??[phone] us Rebekah Azevedo DO [facility] ORDERABLES Final Resul t [facility] [address] [place] [address] * (ABNORMAL) HGB A1C ([facility]) OP (11/24/2021 12:11 PM CDT) HGBA1C OP 6.3(H) <=5.6 % 11/24/2021 12:31 PM CDT [facility] EST AVERAGE GLUCOSE OP 134(H) <=114 mg/dL 11/24/2021 12:31 PM CDT [facility] Blood Venipuncture / Unknown 11/24/2021 12:11 PM CDT 11/24/2021 12:11 PM CDT Nicky ARGUELLES CHEMISTRY ORDERABLE Final Resu lt [facility] [address] [place] [address], * (ABNORMAL) ALBUMIN/CREATININE RATIO, URINE ([facility]) (04/29/2021 12:54 PM TIRE TRIMMER HAND) Pathologist [facility] Creatinine Urine ([facility]) 91.7 Not Estab. mg/dL 04/30/2021 12:08 PM TIRE TRIMMER HAND [facility] Albumin Urine. ([facility]) 49.4 Not Estab. ug/mL 04/30/2021 12:08 PM TIRE TRIMMER HAND [facility] Albumin/Creatin ine Ratio ([facility]) 54(H) 0 - 29 mg/g creat 04/30/2021 12:08 PM TIRE TRIMMER HAND [facility] Comment: ? Normal: ?0 - ??29 ? Moderately increased: 30 - 300 ? Severely increased: ? >300 Urine specimen (specimen) 04/29/2021 12:54 PM TIRE TRIMMER HAND 04/29/2021 12:54 PM TIRE TRIMMER HAND Narrative [facility] - 04/30/2021 12:08 PM TIRE TRIMMER HAND Performed at: ??01 - [facility] [address], [place] ??[id number] [employer] Operator: Jared Arrieta MD, Phone: ??[phone] us Eusebia Martel MD [facility] ORDERABLES Final Resul t [facility] [address] [place] [address] * US ABDOMEN AORTA SCREENING (09/07/2019 11:58 [...] Saul George Eusebia Martel MD ULTRASOUND ORDERABLE Final Res ult * HEP C ANTIBODY (09/07/2019 10:46 AM CDT) Hepatitis C Antibody Non-Reacti ve Non-Reacti ve 09/07/2019 11:44 PM CDT [facility] Blood specimen (specimen) Venipuncture / Unknown 09/07/2019 10:46 AM CDT 09/07/2019 10:46 AM CDT Eusebia Martel MD IMMUNOLOGY ORDERABLE Final Res ult [facility] [address] [place] [address] from Last 3 Months or Most Recently Relevant to Health Maintenance Administered Medications Insurance [place] MEDICARE PART A & B Advance Directives For more information, please contact: [phone] Documents on File Type Date Recorded Patient Rn Surgery Icu Expl anation Health Care Directive 05/13/2011 1:08 PM Care Teams Bus Mechanic Relationship Specialty Start Date End Date Waldemar Valentin MD PCP - [facility] 06/15/11 Nicky Stephens [employer] [id number] [place] [address] PCP - General Internal Medicine 11/24/21
--- NOTE | 2024-01-05 13:45 | CRLHL7_ITS ---
For Patients: As a result of the Century Cures Act, medical imaging exams and procedure reports are released immediately into your electronic medical record. You may view this report before your referring provider. If you have questions, please contact your health care provider. Indication: Abdominal aortic aneurysm screening. Technique: Grayscale and color ultrasound evaluation of the aorta and bilateral iliac arteries was performed. Comparison: None. Findings: Proximal aorta: 3.1 x 3.9 cm Mid aorta: 2.3 x 2.6 cm Distal aorta: 2.4 x 2.6 cm Right iliac artery: 1.4 x 1.5 cm Left iliac artery: 1.5 x 1.5 cm Impression: 1. Proximal abdominal aortic aneurysm measuring up to 3.9 cm. Dictated by Arturo Solis MD @ 01/05/2024 8:12:43 PM (Electronically Signed)
== END 2024-01-05 13:37 | disposition home or self-care (01) ==
LOC: US 13:37
PROVIDERS: PCP Emergency Medicine; Visit Provider Emergency Medicine
DX: Z13.6 Encounter for screening for cardiovascular disorders (principal); I71.40 Abdominal aortic aneurysm, without rupture, unspecified; Z87.891 Personal history of nicotine dependence
CPT/HCPCS: 76706

== ENCOUNTER 2024-07-07 08:52 | Outpatient (CLI) | payer MEDICARE, OTHER, SELFPAY ==
--- NOTE | 2024-07-07 09:15 | CRLHL7_ITS ---
For Patients: As a result of the Century Cures Act, medical imaging exams and procedure reports are released immediately into your electronic medical record. You may view this report before your referring provider. If you have questions, please contact your health care provider. Examination: US abdominal aorta Indication: AAA FOLLOW UP Technique: Bhat scale and color Doppler images of the aorta and common iliac arteries are obtained. Comparison: 01/05/2024 Findings: Proximal aorta: 3.1 x 3.6 cm, previously measuring 3.1 x 3.9 cm Mid aorta: 2.4 x 2.5 cm Distal aorta: 2.0 x 2.0 cm Right common iliac artery: 1.3 x 1.3 cm Left common iliac artery: 1.3 x 1.3 cm Recommended imaging interval for ectatic aorta: 3.5-3.9 cm: 2 years Impression: Proximal abdominal aorta measures up to 3.6 cm. Dictated by Tucker Zurita MD @ 07/07/2024 11:28:40 AM (Electronically Signed)
== END 2024-07-07 08:53 | disposition home or self-care (01) ==
LOC: US 08:52
PROVIDERS: PCP Emergency Medicine; Visit Provider Emergency Medicine
DX: I71.40 Abdominal aortic aneurysm, without rupture, unspecified (principal)
CPT/HCPCS: 76775